=== PATIENT | female | born 1960 | race Caucasian/White ===

== ENCOUNTER 2020-02-16 14:34 | Emergency (ER) | payer BC, SELFPAY ==
[2020-02-16 14:52] VITALS: BP 182/90; PULSE 81; RESP 14; TEMP 36.2; O2SAT 99
--- NOTE | 2020-02-16 14:58 | ED.UPPEXIN ---
HPI - Extremity Injury (Upper) General Chief Complaint: Extremity Injury, Upper Stated Complaint: Neck/Shoulder Pain Time Seen by Provider: 02/16/20 14:59 Source: patient Mode of arrival: ambulatory Limitations: no limitations History of Present Illness HPI narrative: Kortney Mitchell is a 59 yo female with a PMH of HTN, DM, that comes to express care after sleeping on arm/neck and has difficulty moving arm over neck. Only activity that could have stressed area was painting house week of Xmas. Pain rated 6/10, back of neck yoder. No N/V/D. Related Data Home Medications Medication Instructions Recorded Confirmed lancets 30 gauge #25 each 03/02/19 multivitamin 1 tablet PO DAILY 03/02/19 02/16/20 omega-3 fatty acids 1,000 mg 1,000 mg PO DAILY 03/02/19 02/16/20 capsule Allergies Allergy/AdvReac Type Severity Reaction Status Date / Time Sulfa (Sulfonamide AdvReac Hives Verified 02/16/20 14:59 Antibiotics) Review of Systems Review of Systems: Narrative: CONSTITUTIONAL: Denies fever, chills, sweats. EYES: Denies visual changes, redness, discharge. ENT: Denies rhinorrhea, congestion, sore throat, otalgia. CARDIOVASCULAR: Denies chest pain, palpitations, edema. RESPIRATORY: Denies dyspnea, wheezing, cough GASTROINTESTINAL: Denies abdominal pain, nausea, vomiting, diarrhea. GENITOURINARY: Denies dysuria, hematuria, abnormal discharge SKIN: Denies rash or itching. NEUROLOGIC: Denies numbness, or focal weakness. PSYCHIATRIC: Denies anxiety or depression. Right neck and shoulder pain, difficulty holding right arm up on own unable to raise beyond 90 degrees PMFSH Past Medical History Medical History Hyperlipidemia due to type 2 diabetes mellitus Type 2 diabetes mellitus with other circulatory complications Surgical History Surgical History H/O spinal fusion History of hemorrhoidectomy Family History Family History Other Diabetes mellitus Hypertension Social History Social History Social History: Pt states she quot about 15 yrs ago Smoking packs per day: 1 Smoking cigarettes per day: 20.0 Years smoked: 10 Smoking pack-years: 10.00 Smoking status: Former smoker Alcohol intake: current Substance use: never 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 There is no relevant family history pertinent to the presenting complaint. Blood pressure is usually normally better controlled is on blood pressure medication Exam Narrative: Exam Narrative: GENERAL: This is a well-nourished, well-developed patient, in mild distress. HEAD: normocephalic, atraumatic. EYES: Sclera clear/white. Vision is grossly intact. EARS: External ears normal, auditory . Hearing grossly intact. NOSE: External nose normal without nasal discharge, nares without redness, no rhinorrhea. THROAT: Mucous membranes moist, NECK: Neck supple, tender with palpation CARDIOVASCULAR: Regular rate and rhythm without murmurs, gallops, or rubs. RESPIRATORY: Clear to auscultation. Breath sounds equal bilaterally. No wheezes, rales, or rhonchi. GASTROINTESTINAL: Abdomen soft, non-tender, SKIN: warm, intact with no suspicious lesions or rash, good texture and turgor. NEURO: awake, alert, and oriented to person, place and time. There were no obvious focal neurologic abnormalities. Steady gait EXTREMITIES: Normal range of motion on the left; on right unable to raise arm above 90 degrees elbow strength both pushing and pulling is 5 out of 5 BACK: Nontender without deformity Course Cour
[2020-02-16] MEDS: KETOROLAC (*BKC) 60 MG/2 ML VIAL IM (15:04)
== END 2020-02-16 15:24 | disposition home or self-care (01) ==
PROVIDERS: Emergency Provider Nurse Practitioner
DX: M54.2 Cervicalgia (principal); Z87.891 Personal history of nicotine dependence; E78.5 Hyperlipidemia, unspecified; E11.59 Type 2 diabetes mellitus with other circulatory complications; I10 Essential (primary) hypertension
CPT/HCPCS: 96372; 99213; G0463; J1885

== ENCOUNTER 2020-09-26 00:35 | Day surgery (SDC) | payer BC, SELFPAY ==
[2020-09-13 15:11] VITALS: BMI 31.1
[2020-09-26 07:50] VITALS: BP 135/66; PULSE 83; RESP 16; TEMP 36.1; O2SAT 97; BMI 31.6
[2020-09-26] MEDS: LACTATED RINGERS 1,000 ML 150 ML IV CONT (08:22)
--- NOTE | 2020-09-26 08:31 | WPDANESEPPF ---
Anes - Initial Pre Proc Eval Procedure: Operation Date: 09/26/20 09:45 Proposed Procedures p Screening Colonoscopy - Mike Valenzuela MD Date/Time: 09/26/20 08:31 Surgeon: Mike Valenzuela MD Pre Op Diagnosis: neoplasm screening Patient Data Age: 60 Gender: F Height: 1.57 m Weight: 78.4 kg Last Vital Signs Temp 36.1 C L 09/26/20 07:50 Pulse 83 09/26/20 07:50 Resp 16 09/26/20 07:50 BP 135/66 09/26/20 07:50 Pulse Ox 97 09/26/20 07:50 Allergies Allergy/AdvReac Type Severity Reaction Status Date / Time Sulfa (Sulfonamide AdvReac Hives Verified 09/26/20 08:26 Antibiotics) Home Medications Medication Instructions Recorded Confirmed Type lancets 30 gauge #25 each 03/02/19 09/26/20 History multivitamin 1 tablet PO DAILY 03/02/19 09/26/20 History omega-3 fatty acids 1,000 mg 1,000 mg PO DAILY 03/02/19 09/26/20 History capsule losartan 100 1 tablet PO DAILY #90 tablet 10/05/19 09/26/20 Rx mg-hydrochlorothiazide 12.5 mg tablet amitriptyline 25 mg tablet 25 mg PO DAILY tablet 02/21/20 09/26/20 History calcium carbonate-vitamin D3 600 1 cap PO DAILY 02/21/20 09/26/20 History mg calcium-200 unit capsule magnesium chloride 70 mg 70 mg PO DAILY 02/21/20 09/26/20 History (magnesium chloride) tablet,delayed release potassium gluconate 595 mg (99 mg) 595 mg PO DAILY 02/21/20 09/26/20 History tablet blood sugar diagnostic #300 ea 04/06/20 09/26/20 Rx metformin 500 mg tablet,extended See Rx Instructions .ROUTE 06/26/20 09/26/20 Rx release 24 hr .COMPLEX #180 tablet metoprolol succinate 100 mg See Rx Instructions .ROUTE 06/26/20 09/26/20 Rx tablet,extended release 24 hr .COMPLEX #90 tablet simvastatin 10 mg tablet 10 mg PO DAILY #90 tablet 09/11/20 09/26/20 Rx Patient hx anesthesia problems: none Family hx anesthesia problems: none PMFSH Past Medical History Medical History Hyperlipidemia due to type 2 diabetes mellitus Hypertension IBS (irritable bowel syndrome) Type 2 diabetes mellitus with other circulatory complications Surgical History Surgical History H/O spinal fusion History of hemorrhoidectomy Family History Family History Other Diabetes mellitus Hypertension Social History Social History Social History: Pt states she quot about 15 yrs ago Smoking packs per day: 1 Smoking cigarettes per day: 20.0 Years smoked: 10 Smoking pack-years: 10.00 Smoking status: Former smoker Tobacco type: cigarettes Alcohol intake: current Drinks per week: 1 Alcohol use details: occasionally Substance use: never Substance use type: does not use Living arrangements: alone 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 Gender identity (if verbalized by the patient): Female Spiritual care concerns: No Agree to blood products: Yes Anes - Eval Final PreProcedure Day of Procedure 09/26/20 08:31 Patient weight: obese Heart: regular rate and rhythm Lungs: clear to auscultation Airway: Mallampati scale class II Neurological: alert and oriented Last oral intake: >/= 8 hours ASA classification: III Emergent: no Anesthetic plan: proceed Anesthesia type and monitoring: general GIVS and standard monitoring Informed Consent: The patient's anesthetic plan and its attendant risks and benefits were discussed with the patient/family/POA. Questions were solicited and answers provided to the satisfaction of the patient/family/POA.
[2020-09-26 08:32] LABS: Glucose Point of Care 136 mg/dl (65-105)
--- NOTE | 2020-09-26 09:14 | PM.HPGS ---
History of Present Illness History of Present Illness Consent: Risks, benefits, and alternatives have been discussed and questions answered. Patient agrees to proceed with procedure. Chief complaint: neoplasm screening Narrative: Kortney Mitchell is a 60 year old female with last colonoscopy 10 years ago. Review of Systems Constitutional: Constitutional: Denies headache(s) and Denies weakness Eyes: Eyes: Denies blurry vision ENT: Reports Normal hearing present, Denies headache(s) and Denies neck pain Cardiovascular: Cardiovascular: Denies chest pain and Denies dyspnea Respiratory: Respiratory: Denies dyspnea Gastrointestinal: Gastrointestinal: Reports no additional gastrointestinal complaints Genitourinary: Genitourinary: Denies dysuria Musculoskeletal: Musculoskeletal: Denies neck pain Integumentary/Breasts: Skin/Breast: Denies dry skin Neurologic: Reports Normal hearing present, Denies headache(s) and Denies weakness Psychiatric: Psychiatric: Denies anxiety Endocrine: Endocrine: Denies change in body appearance Hematologic/Lymphatic: Hematologic/Lymphatic: Denies easy bleeding Allergic/Immunologic: Allergic/Immunologic: Denies urticaria PMFSH Past Medical History Medical History (Updated 09/26/20 @ 09:14 by Mike Valenzuela MD) Colon cancer screening Hyperlipidemia due to type 2 diabetes mellitus Hypertension IBS (irritable bowel syndrome) Type 2 diabetes mellitus with other circulatory complications Surgical History Surgical History H/O spinal fusion History of hemorrhoidectomy Family History Family History Other Diabetes mellitus Hypertension Social History Social History Social History: Pt states she quot about 15 yrs ago Smoking packs per day: 1 Smoking cigarettes per day: 20.0 Years smoked: 10 Smoking pack-years: 10.00 Smoking status: Former smoker Tobacco type: cigarettes Alcohol intake: current Drinks per week: 1 Alcohol use details: occasionally Substance use: never Substance use type: does not use Living arrangements: alone 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 Gender identity (if verbalized by the patient): Female Spiritual care concerns: No Agree to blood products: Yes Meds Home Medications and Allergies Home Medications Medication Instructions Recorded Confirmed Type lancets 30 gauge #25 each 03/02/19 09/26/20 History multivitamin 1 tablet PO DAILY 03/02/19 09/26/20 History omega-3 fatty acids 1,000 mg 1,000 mg PO DAILY 03/02/19 09/26/20 History capsule losartan 100 1 tablet PO DAILY #90 tablet 10/05/19 09/26/20 Rx mg-hydrochlorothiazide 12.5 mg tablet amitriptyline 25 mg tablet 25 mg PO DAILY tablet 02/21/20 09/26/20 History calcium carbonate-vitamin D3 600 1 cap PO DAILY 02/21/20 09/26/20 History mg calcium-200 unit capsule magnesium chloride 70 mg 70 mg PO DAILY 02/21/20 09/26/20 History (magnesium chloride) tablet,delayed release potassium gluconate 595 mg (99 mg) 595 mg PO DAILY 02/21/20 09/26/20 History tablet blood sugar diagnostic #300 ea 04/06/20 09/26/20 Rx metformin 500 mg tablet,extended See Rx Instructions .ROUTE 06/26/20 09/26/20 Rx release 24 hr .COMPLEX #180 tablet metoprolol succinate 100 mg See Rx Instructions .ROUTE 06/26/20 09/26/20 Rx tablet,extended release 24 hr .COMPLEX #90 tablet simvastatin 10 mg tablet 10 mg PO DAILY #90 tablet 09/11/20 09/26/20 Rx Allergies Allergy/AdvReac Type Severity Reaction Status Date / Time Sulfa (Sulfonamide AdvReac Hives Verified 09/26/20 08:26 Antibiotics) Vital Signs Vital Signs - 24 hr 09/26/20 07:50 Temperature 96.9 F L Pulse Rate 83 Respiratory Rate 16 Blood Pressure 135/66 Pulse Oximetry 97 Exam Const: Gener
[2020-09-26 09:37] VITALS: BP 144/76; PULSE 73; RESP 23; O2SAT 98
[2020-09-26 09:47] VITALS: BP 156/87; PULSE 67; RESP 18; O2SAT 98
[2020-09-26 09:57] VITALS: BP 166/76; PULSE 65; RESP 21; O2SAT 100
== END 2020-09-26 10:15 | disposition home or self-care (01) ==
PROVIDERS: PCP Family Medicine; Visit Provider Internal Medicine Gastroenterology
PROC: 0DJD8ZZ Inspection of Lower Intestinal Tract, Via Natural or Artificial Opening Endoscopic (ICD-10-PCS; CPT 45378; principal; 2020-09-26 09:45)
DX: Z12.11 Encounter for screening for malignant neoplasm of colon (principal); D12.2 Benign neoplasm of ascending colon; K57.30 Diverticulosis of large intestine without perforation or abscess without bleeding; K64.8 Other hemorrhoids; I10 Essential (primary) hypertension; K58.9 Irritable bowel syndrome, unspecified; E11.59 Type 2 diabetes mellitus with other circulatory complications; Z79.84 Long term (current) use of oral hypoglycemic drugs; E78.5 Hyperlipidemia, unspecified; Z87.891 Personal history of nicotine dependence; E66.9 Obesity, unspecified; Z68.31 Body mass index [BMI] 31.0-31.9, adult
CPT/HCPCS: 45385; 82948; 88305; J2704; J7120

== ENCOUNTER → 2021-02-22 08:39 | Outpatient (CLI) | payer BC, SELFPAY ==
--- NOTE | ~2021-02-22 | US_ITS ---
EXAMINATION: US right upper quadrant DATE: 02/22/2021 09:04 INDICATION: Abnormal levels of other serum enzymes. TECHNIQUE: Multiple grayscale and Doppler ultrasound images of the abdomen were obtained. COMPARISON: None FINDINGS: The visualized portions of the head, body, and tail of the pancreas are normal. There is di ffuse hepatic steatosis with focal sparing in the gallbladder fossa. There is a 1.3 cm hypoechoic mas s in left hepatic lobe. No liver surface nodularity. There is normal flow in main portal vein. The ga llbladder is normal in size. No gallstones or gallbladder wall thickening. There is no sonographic Mu rphy sign. The common duct is normal and measures 3 mm. IMPRESSION: 1. 1.3 cm mass in left hepatic lobe, which may be benign or malignant. Abdomen MRI without and with c ontrast is recommended. Reviewed, dictated and finalized at location A. PAPER CONSULTANT IMPRESSION: 1. 1.3 cm mass in left hepatic lobe, which may be benign or malignant. Abdomen MRI without and with contrast is recommended.
== END ==
PROVIDERS: PCP Nurse Practitioner; Visit Provider Nurse Practitioner
DX: R74.8 Abnormal levels of other serum enzymes (principal); R16.0 Hepatomegaly, not elsewhere classified
CPT/HCPCS: 76705

== ENCOUNTER → 2021-03-08 10:00 | Outpatient (CLI) | payer BC, SELFPAY ==
--- NOTE | ~2021-03-08 | MR_ITS ---
EXAMINATION: MR abdomen wo/w con DATE: 03/08/2021 11:11 INDICATION: Hepatomegaly TECHNIQUE: Magnetic resonance imaging (MRI) of the abdomen was performed without and with 15 mL Multi cornelio intravenous contrast. Sequences included coronal T2-weighted SS-FSE, coronal and axial FS 2D-F IESTA, axial STIR FSE, axial T2-weighted SS-FSE, axial T2-weighted FS SS-FSE, axial diffusion-weighte d SE, axial dual-echo T1-weighted FSPGR, and axial and coronal T1-weighted LAVA. Postcontrast axial T 1-weighted LAVA images were obtained in a time course. Postcontrast coronal T1-weighted LAVA images w ere obtained. COMPARISON: Ultrasound dated 02/22/2021 FINDINGS: Heart size is normal. No pericardial or pleural effusion. Diffuse hepatic steatosis. There are 8 subt le hepatic nodules scattered throughout the right hepatic lobe the largest measuring approximately 1. 9 cm in segment IVb of the liver which appears to correspond to the hypoechoic nodule on prior ultras ound. The nodules are mildly T2 hyperintense and T1 hypointense to the surrounding liver with subtle peripheral rim of enhancement on the portal venous phase of contrast. The next 2 largest nodules marybeth ure 1.9 cm and 1.2 cm in segment 5 of the liver. The remaining subcentimeter nodules are in segment 5 and 6. Gallbladder, pancreas, spleen, bilateral adrenal glands and kidneys are normal. The visualize d bowels are unremarkable with no obstruction. No pathologically enlarged abdominal lymphadenopathy. Prominent metallic magnetic field artifact associated with vertical mckinley and pedicle screw fixation fo r L3-L5 posterior spinal fusion. There are no obscured bone marrow signal is normal throughout. IMPRESSION: 1. Diffuse hepatic steatosis with multiple indeterminate small peripherally enhancing hepatic nodules . Differential includes focal hepatic steatosis, focal nodular hyperplasia or metastatic disease. Con boiler reliner ultrasound-guided biopsy of the nodule identified on prior ultrasound. Reviewed, dictated and finalized at location A. KEN TENDER IMPRESSION: 1. Diffuse hepatic steatosis with multiple indeterminate small peripherally enh ancing hepatic nodules. Differential includes focal hepatic steatosis, focal no dular hyperplasia or metastatic disease. Consider ultrasound-guided biopsy of t he nodule identified on prior ultrasound.
== END ==
PROVIDERS: PCP Family Medicine; Visit Provider Family Medicine
DX: R16.0 Hepatomegaly, not elsewhere classified (principal); K76.0 Fatty (change of) liver, not elsewhere classified
CPT/HCPCS: 74183; A9577

== ENCOUNTER 2021-03-20 02:53 | Outpatient (CLI) | payer BC, SELFPAY ==
[2021-03-15 09:48] VITALS: BMI 32.4
--- NOTE | 2021-03-15 10:01 | PC.NURSE ---
Report to the Outpatient Waiting Room, entrance under the green pavilion located off [facility], at time _0730_ on date _[id number]_. OR Time: ___. - You and your visitor will be asked a series of questions to screen for COVID 19 for your protection. - A mask is required within the hospital. - Only one visitor is allowed at this time. Patient visitors will be guided where to wait when not with patient. Preoperative COVID Testing Requirements: No COVID Test needed if: (proof is required; if not received patient will have Rapid Test prior to entry) - Patient has received COVID Vaccine at least 14 days prior to procedure date or - Patient has positive COVID test result within last 90 days of surgery date. COVID Test needed if above criteria is not met If not COVID vaccinated a COVID test must be conducted within 72 hours of surgery and patient is asked to isolate self from time of testing until procedure. You will go to the [facility] Testing Site for your COVID testing. The [facility] Testing site is located at the corner of [address] from [facility]. You will only be called if COVID results are positive and your surgeon may reschedule your elective surgery date. NPO 6 hours prior to procedure Take the following medications with a SIP of water the morning of surgery: Medications to discontinue per physician Date to take last dose Please no make-up, nail khmer, hairspray, perfume, deodorant, or body powder the day of surgery. No jewelry (including any body piercings) or valuables the day of surgery, leave them at home. Please take a shower or bath the night before, or the morning of, surgery with an antibacterial soap. Wear comfortable, loose fitting clothing. Children are encouraged to wear pajamas. - Jewelry must be removed prior to entering the operating room. Rings and piercings that are not removed may be cut off. - The hospital will not accept responsibility for valuables. - Please leave all valuables, including medications, at home the day of surgery. If you are going home after surgery, a licensed charter coach driver must drive you home. - NO public transportation without another adult. - We recommend that an adult stay with you for 24 hours following discharge. - We also recommend that you do not drive, make important decision, drink alcoholic beverages, or take any drugs that were not prescribed by your health care provider for at least 24 hours after your discharge time. For Pediatric surgeries, we recommend two adults accompany the child home (only one inside the building at this time). Follow any additional instructions given to you from your surgeon. Telephone instructions given to Patient____and asked if any additional questions and then verbalized understanding. Patient advised to call surgeon office or pre surgery nurse liaison [phone] if any additional questions.
[2021-03-20] VITALS (10 sets, daily range): BP systolic 138–171; BP diastolic 47–79; PULSE 51–60; RESP 16; TEMP 36.3; O2SAT 96–98
--- NOTE | ~2021-03-20 | US_ITS ---
EXAMINATION: US biopsy liver DATE: 03/20/2021 10:03 INDICATION: Liver mass. TECHNIQUE: The procedure including the risks, benefits, and alternatives was discussed with the patie nt. Risks discussed included bleeding and infection. The patient understood the risks and agreed to p roceed. The skin overlying the left hepatic lobe was prepped and draped in usual sterile fashion. An esthetic was administered with 1% lidocaine subcutaneously. An 18 gauge core biopsy needle was then used to obtain 3 core biopsy specimens under continuous sonographic guidance. The entry site was raoul librado and dressed. There were no immediate complications. FINDINGS: Ultrasound images demonstrate the needle in a 1.3 cm mass in left hepatic lobe.. IMPRESSION: 1. Ultrasound-guided core needle biopsy of a 1.3 cm mass in left hepatic lobe. Reviewed, dictated and finalized at location A. INE I ENGRAVER
[2021-03-20 08:16] LABS: Glucose Point of Care 149 mg/dl (65-105)
[2021-03-20 08:46] LABS: INR 0.9; Prothrombin Time 12.4 Seconds (11.1-14.7)
[2021-03-20 08:50] LABS: Mean Platelet Volume 11.7 fl (7.4-10.4); Platelet Count Result 219 k/mm3 (150-375)
[2021-03-20 10:31] LABS: Glucose Point of Care 123 mg/dl (65-105)
--- NOTE | 2021-03-20 15:24 | SUR.PHASEII ---
PT DC HOME WITH BOYFRIEND.
== END 2021-03-20 14:00 | disposition home or self-care (01) ==
PROVIDERS: PCP Family Medicine; Referring Provider Surgery; Visit Provider Radiology Diagnostic Radiology
PROC: BF45ZZZ Ultrasonography of Liver (ICD-10-PCS; CPT 47000; principal; 2021-03-20 09:30)
DX: C7A.8 Other malignant neuroendocrine tumors (principal); R16.0 Hepatomegaly, not elsewhere classified
CPT/HCPCS: 36415; 47000; 76942; 82948; 85049; 85610; 88307; 88342

== ENCOUNTER → 2021-05-05 08:42 | Outpatient (CLI) | payer BC, SELFPAY ==
--- NOTE | ~2021-05-05 | MM_ITS ---
EXAMINATION: MM screening matias BI w la nena HISTORY: Screening mammogram TECHNIQUE: Craniocaudal and mediolateral oblique 3-D tomosynthesis images were obtained and synthetic 2-D images were generated. CAD analysis was submitted and interpreted. COMPARISON: No prior mammogram is available for comparison at this institution. BREAST PARENCHYMAL COMPOSITION: There are scattered areas of fibroglandular density. FINDINGS: There is no evidence of suspicious mass, calcification, or architectural distortion to sugg est malignancy in either breast. There has been no suspicious interval change. IMPRESSION: 1. No mammographic evidence of malignancy. 2. Recommend routine screening mammography in one year. BI-RADS Category 1: Negative Reviewed, dictated and finalized at location A.
--- NOTE | ~2021-05-05 | DEXA_ITS ---
Bone Density Report Name: FENG CARIAS Age: 61 Sex: Female Ethnicity: White Date of : 1960 Indication: postmenopausal; screening for osteoporosis; cancer; asthma or emphysema; Referring Provider: Karine Grewal Study: Bone densitometry was performed. Exam Date: May 05, 2021 Accession number: [id number] Bone Density: Region BMD T-score Z-score Classification AP Spine (L1, L2) 1.246 2.4 3.8 Normal Femoral Neck (Left) 0.914 0.6 1.9 Normal Total Hip (Left) 1.065 1.0 2.0 Normal Femoral Neck (Right) 0.898 0.4 1.8 Normal Total Hip (Right) 1.022 0.7 1.7 Normal Total Hip Mean 1.044 0.9 1.9 Normal World Health Organization criteria for BMD impression classify patients as: Normal (T-score at or above -1.0), Osteopenia (T-score between -1.0 and -2.5), or Osteoporosis (T-score at or below -2.5). 10-year Fracture Risk: FRAX not reported because: All T-scores for Spine Total, Hip Total, Femoral Neck at or above -1.0 Clinical Information Provided by Patient: Has used the following medications: Vitamin D, Calcium Has the following medical conditions: Asthma or Emphysema, Cancer Patient maximum height was 62 Menopause Age: 53 No regular weight bearing exercise Does not regularly consume dairy products Drinks caffeinated beverages Onset of menses at age 13 Number of children 3 Impression: The patient has normal bone mass. Discussion: BONE DENSITY IS ABOVE THE MINIMUM DESIRABLE LEVEL AT ALL SKELETAL SITES TESTED. This patient?s bone mineral density is above the minimum desirable level (T-score -1.0 or better) at all sites measured. The patient should follow a healthful lifestyle (good nutrition with adequate calcium and vitamin D, and appropriate weight-bearing exercise). Follow-Up: Consider repeating this study in 5 years or sooner if there is some new clinical indication. Reported by: BAILEE on 05/05/2021 8:57:00 AM. Reviewed, dictated and finalized at location ADominique PACHECO
== END ==
PROVIDERS: PCP Nurse Practitioner; Visit Provider Nurse Practitioner
DX: Z12.31 Encounter for screening mammogram for malignant neoplasm of breast (principal); Z78.0 Asymptomatic menopausal state
CPT/HCPCS: 77063; 77067; 77080

== ENCOUNTER 2021-08-08 08:27 | Outpatient (CLI) | payer BC, SELFPAY ==
[2021-08-08 10:09] LABS: Hemoglobin A1C 6.4 % (<5.7)
== END 2021-08-08 08:28 | disposition home or self-care (01) ==
PROVIDERS: Nurse Practitioner; PCP Family Medicine; Visit Provider Family Medicine
DX: E11.9 Type 2 diabetes mellitus without complications (principal)
CPT/HCPCS: 36415; 83036

== ENCOUNTER 2021-08-30 08:39 | Outpatient (CLI) | payer BC, SELFPAY ==
--- NOTE | ~2021-08-30 | CT_ITS ---
EXAMINATION: CT abdomen pelvis w con DATE: 08/30/2021 09:08 INDICATION: Neuroendocrine tumor of the liver TECHNIQUE: Computed tomography (CT) of the abdomen and pelvis was performed with 100 CC Omnipaque 300 intravenous contrast. Automated exposure control and iterative reconstruction technique were employe d. Exam dose: 565.59 mGy-cm total exam DLP. COMPARISON: 03/08/2021 MR abdomen 02/22/2021 right upper quadrant abdominal ultrasound examination FINDINGS: The lung size. No pericardial. There is diffuse hepatic steatosis with minimal pericholecystic sparing. No hepatic space-occupying m ass lesion. Normal splenic size. No pancreatic mass lesion or calcification or ductal dilatation. The gallbladder is present. No gallbladder wall thickening or pericholecystic fluid or fat stranding. No bile duct dilatation. Normal morphology of the adrenal glands mild hypertrophy on the left. No renal mass lesion or urinary tract calculus or hydroureteronephrosis. The urinary bladder, uterus and adnexa are unremarkable. Mild atherosclerotic calcification of the abdominal aorta. No abdominal aortic aneurysm. No intraperi toneal or retroperitoneal or pelvic mass lesion or adenopathy or ascites. Mild colonic diverticulosis is no evidence of diverticulitis. No bowel obstruction, bowel wall thicke edson, pneumatosis or intraperitoneal free air. Status post posterior and interbody spinal fusion at L3-L5. No suspicious osteolytic or osteosclerotic lesions are noted. IMPRESSION: Hepatic steatosis Mild colonic diverticulosis Status post posterior and interbody spinal fusion at L3-L5 Reviewed, dictated and finalized at Location A. Reviewed, dictated and finalized at location A.
[2021-08-30 09:03] LABS: Estimated Glomerular Filt Rate > 60
== END 2021-08-30 08:40 | disposition home or self-care (01) ==
LOC: ANHIMG 08:40
PROVIDERS: PCP Family Medicine; Visit Provider Internal Medicine Hematology & Oncology
DX: D3A.8 Other benign neuroendocrine tumors (principal); K76.0 Fatty (change of) liver, not elsewhere classified; Z98.1 Arthrodesis status; K57.30 Diverticulosis of large intestine without perforation or abscess without bleeding
CPT/HCPCS: 74177; Q9967

== ENCOUNTER 2021-09-11 08:04 | Emergency (ER) | payer BC, SELFPAY ==
--- NOTE | 2021-09-11 08:12 | ED.EAR ---
HPI - Ear Problem General Chief complaint: Dental/Oral Stated complaint: Ear Pain Time Seen by Provider: 09/11/21 08:25 Source: patient and RN notes reviewed Mode of arrival: ambulatory Limitations: no limitations History of Present Illness HPI Narrative: 61-year-old female presents to concern for right ear pain and lower jaw pain. She reports she has had this pain for approximately 2 months. Reports she has been on several rounds of antibiotics for potential ear, sinus, dental infection. Reports antibiotics have decreased the pain but did not relieve the pain. She reports she has been seen by her cancer doctor, who prescribed her medicine for sinus infection, and she has an appointment with ENT soon. She is undergoing hormone therapy for Neuroendocrine carcinoma. She reports the pain is the worst at her left jaw, and has become swollen and tender. Reports pain with chewing. She denies sinus congestion, rhinorrhea, drianage from the ear. MD Complaint: ear pain (And jaw pain) Related Data Home Medications Medication Instructions Recorded Confirmed lancets 30 gauge (Videolla #25 ea 03/02/19 09/05/21 Lancets) multivitamin 1 tablet PO DAILY 03/02/19 09/05/21 calcium carbonate 600 mg-vitamin 1 cap PO DAILY 02/21/20 09/05/21 D3 5 mcg (200 unit) capsule (Calcium 600 + D(3)) potassium gluconate 595 mg (99 mg) 595 mg PO DAILY 02/21/20 09/05/21 tablet fexofenadine 180 mg tablet 180 mg PO DAILY 02/14/21 09/05/21 (Karol Allergy) magnesium chloride 70 mg 70 mg PO BID 02/14/21 09/05/21 (magnesium chloride) tablet,delayed release carvedilol 25 mg tablet 25 mg PO Q12H 03/12/21 09/05/21 diltiazem HCl 180 mg capsule,24 300 mg PO DAILY 03/12/21 09/05/21 hr,extended release melatonin 10 mg capsule 10 mg PO QHS 03/12/21 09/05/21 omega 9-ryh-uvf-fish oil 1,200 mg 1 cap PO BID 03/12/21 09/05/21 (144 mg-216 mg) capsule (Fish Oil) valsartan 320 mg tablet 320 mg PO DAILY 03/12/21 09/05/21 ondansetron 8 mg oral soluble film 8 mg PO Q8H PRN Nausea 06/13/21 09/05/21 Allergies Allergy/AdvReac Type Severity Reaction Status Date / Time Sulfa (Sulfonamide AdvReac Mild Hives Verified 09/11/21 08:31 Antibiotics) Review of Systems Review of Systems: CONSTITUTIONAL: Denies malaise, chills, sweats, or fever. EYES: Denies visual changes, redness, or discharge. ENT: Denies rhinorrhea, congestion, sinus pain, and sore throat. Reports right ear pain, right jaw pain, right dental pain. CARDIOVASCULAR: Denies chest pain, palpitations, or edema. RESPIRATORY: Denies cough. Denies dyspnea. GASTROINTESTINAL: Denies abdominal pain, nausea, vomiting, diarrhea SKIN: Denies rash or itching. MUSCULOSKELETAL: Denies myalgia. NEUROLOGIC: Denies headache. 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
[2021-09-11 08:15] VITALS: BP 147/62; PULSE 59; RESP 20; TEMP 36.5; O2SAT 99
== END 2021-09-11 08:56 | disposition home or self-care (01) ==
PROVIDERS: Emergency Provider Nurse Practitioner; PCP Nurse Practitioner
DX: K05.219 Aggressive periodontitis, localized, unspecified severity (principal); E78.5 Hyperlipidemia, unspecified; E11.9 Type 2 diabetes mellitus without complications; I10 Essential (primary) hypertension; Z85.89 Personal history of malignant neoplasm of other organs and systems; Z85.05 Personal history of malignant neoplasm of liver; Z87.891 Personal history of nicotine dependence
CPT/HCPCS: 41800; 99213; G0463

== ENCOUNTER 2022-01-23 08:31 | Outpatient (CLI) | payer BC, SELFPAY ==
[2022-01-23 11:56] LABS: MALB Creatinine Ratio 650.7 mg/g (0-30); Microalbumin Urine Random 91.1 mg/L (0-16.7)
[2022-01-23 12:37] LABS: Cholesterol 231 mg/dL (0-200); HDL Direct 85 mg/dL; Triglycerides 113 mg/dL (<150)
[2022-01-23 12:48] LABS: LDL Cholesterol Direct 102 mg/dL
== END 2022-01-23 08:32 | disposition home or self-care (01) ==
LOC: ANHLAB 08:32
PROVIDERS: PCP Nurse Practitioner; Visit Provider Nurse Practitioner
DX: E11.9 Type 2 diabetes mellitus without complications (principal); E78.5 Hyperlipidemia, unspecified
CPT/HCPCS: 36415; 80061; 82043

== ENCOUNTER 2022-08-27 13:20 | Outpatient (CLI) | payer BC, SELFPAY ==
--- NOTE | ~2022-08-27 | CT_ITS ---
EXAMINATION: CT abdomen pelvis w con DATE: 08/27/2022 13:54 INDICATION: Neuroendocrine tumor of liver. TECHNIQUE: Computed tomography (CT) of the abdomen and pelvis was performed with 100 mL Omnipaque 350 intravenous contrast. Automated exposure control and iterative reconstruction technique were employe d. The dose-length product was 507.71 mGy-cm. COMPARISON: CT abdomen and pelvis 08/30/2021, abdomen MRI 03/08/21 FINDINGS: The visualized portions of the lung bases demonstrate mild atelectasis. No pleural effusion . The heart size is normal. No pericardial effusion. There is diffuse hepatic steatosis. There are 3 hypodense masses in the liver measuring up to 18 mm. The gallbladder is normal. The spleen, pancreas, and adrenal glands are normal. There are embolization coils in the area of gastroduodenal artery. Th e kidneys are normal. There is diverticulosis of the colon without evidence of diverticulitis. There are no dilated loops of bowel. The appendix is normal. There is a 1.8 x 1.1 cm calcified mesenteric m ass in the right lower quadrant. There are subcutaneous masses in the buttocks, likely fat necrosis. There is focal soft tissue gas in the subcutaneous right buttocks, which may be an injection site. Th ere are no pathologically enlarged lymph nodes. There is no free intraperitoneal fluid. There are chang nges of anterior and posterior fusion procedures from L3 to L5. IMPRESSION: 1. Stable calcified mass mesenteric mass in the right lower quadrant, most likely carcinoid. 2. Liver masses that were not seen on 08/30/21, consistent with metastatic disease. Note that liver ma sses were better seen on the MRI from 03/08/2021. Given the decreased sensitivity of CT compared to MR I, it is not clear if the findings have improved or worsened from prior imaging. Reviewed, dictated and finalized at location E. IMPRESSION: 1. Stable calcified mass mesenteric mass in the right lower quadrant, most like ly carcinoid. 2. Liver masses that were not seen on 08/30/21, consistent with metastatic disea se. Note that liver masses were better seen on the MRI from 03/08/2021. Given th e decreased sensitivity of CT compared to MRI, it is not clear if the findings have improved or worsened from prior imaging.
[2022-08-27 13:49] LABS: Estimated Glomerular Filt Rate > 60
== END 2022-08-27 13:21 | disposition home or self-care (01) ==
PROVIDERS: PCP Nurse Practitioner Adult Health; Visit Provider Internal Medicine Hematology & Oncology
DX: D3A.8 Other benign neuroendocrine tumors (principal); R16.0 Hepatomegaly, not elsewhere classified
CPT/HCPCS: 74177; Q9967

== ENCOUNTER 2023-02-13 08:12 | Outpatient (CLI) | payer BC, SELFPAY ==
--- NOTE | ~2023-02-13 | CT_ITS ---
EXAMINATION: CT abdomen pelvis w con DATE: 02/13/2023 08:42 INDICATION: Neuroendocrine tumor of liver. TECHNIQUE: Computed tomography (CT) of the abdomen and pelvis was performed with 100 mL Omnipaque 350 intravenous contrast. Automated exposure control and iterative reconstruction technique were employe d. The dose-length product was 612.93 mGy-cm. COMPARISON: CT abdomen and pelvis 08/27/2022 08/30/2021, abdomen MRI 03/08/21 FINDINGS: The visualized portions of the lung bases demonstrate mild atelectasis. No pleural effusion . The heart size is normal. No pericardial effusion. There is heterogeneous attenuation and mild volu me loss of right hepatic lobe. There is surface nodularity of right hepatic lobe. There is a 19 mm hy podense mass in right hepatic lobe, stable from 08/27/2022. There is a 9 mm hypodense mass in right he patic lobe, stable from 08/27/2022. The gallbladder is normal in size. The spleen, pancreas, and right adrenal gland are normal. There is chronic thickening of left adrenal gland, likely benign. There ar e embolization coils in gastroduodenal artery. The kidneys are normal. There are no dilated loops of bowel. The appendix is normal. In the right lower quadrant, there is a 20 x 13 mm calcified mesenteri c mass. There are no pathologically enlarged lymph nodes. There is no free intraperitoneal fluid. The re are changes of anterior and posterior fusion procedures from L3 to L5. IMPRESSION: 1. Stable masses in right hepatic lobe, consistent with metastatic neuroendocrine tumor. 2. Diffuse heterogeneity and volume loss of right hepatic lobe, new from 08/27/22. These findings may be treatment change if there is a history of chemoembolization. 3. Calcified mass in the mesentery, stable from 08/27/2022, consistent with neuroendocrine tumor. Reviewed, dictated and finalized at location A. [employer] IMPRESSION: 1. Stable masses in right hepatic lobe, consistent with metastatic neuroendocri ne tumor. 2. Diffuse heterogeneity and volume loss of right hepatic lobe, new from 3. These findings may be treatment change if there is a history of chemoemboliz ation. 3. Calcified mass in the mesentery, stable from 08/27/2022, consistent with neur oendocrine tumor.
== END 2023-02-13 08:13 | disposition home or self-care (01) ==
LOC: ANHIMG 08:16
PROVIDERS: PCP Nurse Practitioner Adult Health; Visit Provider Internal Medicine Hematology & Oncology
DX: D3A.8 Other benign neuroendocrine tumors (principal)
CPT/HCPCS: 74177; Q9967

== ENCOUNTER 2023-02-25 08:32 | Outpatient (CLI) | payer BC, SELFPAY ==
[2023-02-25 18:53] LABS: Alanine Aminotransferase 63 U/L (6-35); Albumin Level 4.4 g/dL (3.5-5.1); Alkaline Phosphatase 125 U/L (38-126); Anion Gap 8 mmol/L (8-16); Aspartate Amino Transferase 82 U/L (14-36); Bilirubin,Total 0.7 mg/dL (0.2-1.3); Blood Urea Nitrogen 18 mg/dL (7-17); Calcium 9.3 mg/dL (8.4-10.2); Carbon Dioxide 30 mmol/L (22-30); Chloride 100 mmol/L (98-107); Cholesterol 209 mg/dL (0-200); Estimated Glomerular Filt Rate > 60; Glucose 134 mg/dL (65-110); HDL Direct 74 mg/dL; Potassium 4.5 mmol/L (3.4-5.0); Sodium 138 mmol/L (137-145); Triglycerides 136 mg/dL (<150)
[2023-02-25 19:04] LABS: LDL Cholesterol Direct 103 mg/dL
[2023-02-25 20:10] LABS: Basophils Percent Auto 0.8 % (0.2-1.2); Eosinophils Absolute Auto 0.1 K/mm3 (0-0.3); Eosinophils Percent Auto 3.6 % (0-4.4); Hematocrit 42.9 % (37.0-47.0); Hemoglobin 13.7 g/dL (12.0-15.0); Immature Granulocyte Absolute 0.01 K/mm3 (0.00-0.031); Immature Granulocyte Percent A 0.3 % (0-0.5); Lymphocytes Absolute Auto 0.57 K/mm3 (0.9-3.2); Lymphocytes Percent Auto 14.8 % (18.3-44.2); Mean Corpuscular HGB Conc 31.9 g/dl (32-36); Mean Corpuscular Hemoglobin 31.8 pg (26-34); Mean Corpuscular Volume 99.5 fl (80-100); Mean Platelet Volume 11.3 fl (7.4-10.4); Monocytes Absolute Auto 0.5 K/mm3 (0.1-0.6); Monocytes Percent Auto 12.5 % (2.6-8.5); Neutrophils Absolute Auto 2.6 K/mm3 (1.3-6.7); Platelet Count Result 250 k/mm3 (150-375); Red Blood Count 4.31 M/mm3 (4.2-5.4); Red Cell Distribution Width 13.3 % (11.5-14.5); White Blood Count 3.8 K/mm3 (4.5-10.0)
[2023-02-25 20:30] LABS: Hemoglobin A1C 7.3 % (<5.7)
[2023-02-25 20:38] LABS: Creatinine Urine 63.3 mg/dL
[2023-02-25 20:42] LABS: MALB Creatinine Ratio 21.8 mg/g (0-30); Microalbumin Urine Random 13.8 mg/L (0-16.7)
[2023-03-12 18:41] LABS: Serotonin 183 ng/mL (56-244)
== END 2023-02-25 08:33 | disposition home or self-care (01) ==
PROVIDERS: PCP Nurse Practitioner Adult Health; Visit Provider Internal Medicine Hematology & Oncology
DX: D3A.8 Other benign neuroendocrine tumors (principal); E11.9 Type 2 diabetes mellitus without complications
CPT/HCPCS: 36415; 80053; 80061; 82043; 83036; 84260; 85025; 86316

== ENCOUNTER 2023-07-03 08:00 | Outpatient (CLI) | payer BC, SELFPAY ==
[2023-07-03 19:03] LABS: Basophils Percent Auto 0.8 % (0.2-1.2); Eosinophils Absolute Auto 0.2 K/mm3 (0-0.3); Eosinophils Percent Auto 5.9 % (0-4.4); Hematocrit 45.5 % (37.0-47.0); Hemoglobin 14.2 g/dL (12.0-15.0); Immature Granulocyte Absolute 0.02 K/mm3 (0.00-0.031); Immature Granulocyte Percent A 0.6 % (0-0.5); Lymphocytes Absolute Auto 0.49 K/mm3 (0.9-3.2); Lymphocytes Percent Auto 13.8 % (18.3-44.2); Mean Corpuscular HGB Conc 31.2 g/dl (32-36); Mean Corpuscular Hemoglobin 31.9 pg (26-34); Mean Corpuscular Volume 102.2 fl (80-100); Mean Platelet Volume 12.3 fl (7.4-10.4); Monocytes Absolute Auto 0.4 K/mm3 (0.1-0.6); Monocytes Percent Auto 11.5 % (2.6-8.5); Neutrophils Absolute Auto 2.4 K/mm3 (1.3-6.7); Neutrophils Percent Auto 67.4 % (45.5-73.1); Platelet Count Result 175 k/mm3 (150-375); Red Blood Count 4.45 M/mm3 (4.2-5.4); Red Cell Distribution Width 13.8 % (11.5-14.5); White Blood Count 3.6 K/mm3 (4.5-10.0)
[2023-07-03 19:15] LABS: Alanine Aminotransferase 75 U/L (6-35); Alkaline Phosphatase 117 U/L (38-126); Anion Gap 10 mmol/L (4-12); Aspartate Amino Transferase 84 U/L (14-36); Bilirubin,Total 0.7 mg/dL (0.2-1.3); Blood Urea Nitrogen 28 mg/dL (7-17); Calcium 9.5 mg/dL (8.4-10.2); Carbon Dioxide 24 mmol/L (22-30); Chloride 102 mmol/L (98-107); Cholesterol 233 mg/dL (0-200); Estimated Glomerular Filt Rate > 60; Glucose 126 mg/dL (65-110); HDL Direct 97 mg/dL; Potassium 4.4 mmol/L (3.4-5.0); Sodium 136 mmol/L (137-145); Triglycerides 290 mg/dL (<150)
[2023-07-03 19:27] LABS: LDL Cholesterol Direct 100 mg/dL
[2023-07-03 21:03] LABS: Hemoglobin A1C 6.8 % (<5.7)
[2023-07-03 21:20] LABS: Creatinine Urine 7.5 mg/dL
[2023-07-03 21:26] LABS: MALB Creatinine Ratio 350.7 mg/g (0-30); Microalbumin Urine Random 26.3 mg/L (0-16.7)
[2023-07-11 18:14] LABS: Serotonin 225 ng/mL (56-244)
== END 2023-07-03 08:01 | disposition home or self-care (01) ==
PROVIDERS: PCP Nurse Practitioner Adult Health; Visit Provider Internal Medicine Hematology & Oncology
DX: D3A.8 Other benign neuroendocrine tumors (principal); E11.9 Type 2 diabetes mellitus without complications; R74.8 Abnormal levels of other serum enzymes
CPT/HCPCS: 36415; 80048; 80061; 80076; 82043; 83036; 84260; 85025; 86316

== ENCOUNTER 2023-07-16 08:03 | Outpatient (CLI) | payer BC, SELFPAY ==
--- NOTE | ~2023-07-16 | CT_ITS ---
CT of the Abdomen and Pelvis: Indication: Neuroendocrine tumor of liver Technique: 2.5 mm axial scans were obtained through the abdomen and pelvis following intravenous adm inistration of 100 cc of Omnipaque 350. Dose reduction technique was used on this scan by utilizing a utomated exposure control and iterative reconstruction technique. The dose-length product (DLP) was 6 65.16 mGy-cm. COMPARISON: 02/13/2023 Findings: Scans through the lung bases are unremarkable. There is diffuse hepatic steatosis with a heterogeneous and nodular appearance of the inferior right hepatic lobe. Findings are essentially stable from prior exam. The spleen, pancreas, gallbladder, adr enals and kidneys are within normal limits. There are atherosclerotic calcifications of the aorta. N o lymphadenopathy. No bowel obstruction or bowel wall thickening. There is no evidence to suggest acute appendicitis. St able small irregular calcified mass in the mesentery just anterior to the right kidney, measuring 1.7 cm in diameter (axial image 82 for example). Images through the pelvis were performed. Urinary bladder unremarkable. No pelvic mass seen. No ascit es. Impression: Stable 1.7 cm area calcified mass in the mesentery in the right mid abdomen, as detailed above. This could reflect carcinoid tumor. Stable diffuse metastatic steatosis with mild heterogeneity and nodularity of the inferior right hepa tic lobe. Findings could reflect metastatic disease. Reviewed, dictated and finalized at location . Impression: Stable 1.7 cm area calcified mass in the mesentery in the right mid abdomen, as detailed above. This could reflect carcinoid tumor. Stable diffuse metastatic steatosis with mild heterogeneity and nodularity of t he inferior right hepatic lobe. Findings could reflect metastatic disease.
== END 2023-07-16 08:04 | disposition home or self-care (01) ==
LOC: ANHIMG 08:05
PROVIDERS: PCP Nurse Practitioner Adult Health; Visit Provider Internal Medicine Hematology & Oncology
DX: D3A.8 Other benign neuroendocrine tumors (principal)
CPT/HCPCS: 74177; Q9967

== ENCOUNTER 2023-10-06 07:21 | Outpatient (CLI) | payer BC, SELFPAY ==
[2023-10-06 18:25] LABS: Basophils Percent Auto 0.6 % (0.2-1.2); Eosinophils Absolute Auto 0.2 K/mm3 (0-0.3); Eosinophils Percent Auto 6.1 % (0-4.4); Hematocrit 45.5 % (37.0-47.0); Immature Granulocyte Absolute 0.01 K/mm3 (0.00-0.031); Immature Granulocyte Percent A 0.3 % (0-0.5); Immature Platelet Fraction Pct 7.6 % (0.9-11.2); Lymphocytes Absolute Auto 0.54 K/mm3 (0.9-3.2); Mean Corpuscular HGB Conc 30.8 g/dl (32-36); Mean Corpuscular Hemoglobin 31.8 pg (26-34); Mean Corpuscular Volume 103.4 fl (80-100); Monocytes Absolute Auto 0.4 K/mm3 (0.1-0.6); Monocytes Percent Auto 11.7 % (2.6-8.5); Neutrophils Absolute Auto 2.4 K/mm3 (1.3-6.7); Neutrophils Percent Auto 66.3 % (45.5-73.1); Red Cell Distribution Width 14.6 % (11.5-14.5); White Blood Count 3.6 K/mm3 (4.5-10.0)
[2023-10-06 18:54] LABS: Anion Gap 13 mmol/L (4-12); Blood Urea Nitrogen 16 mg/dL (7-17); Calcium 9.1 mg/dL (8.4-10.2); Carbon Dioxide 25 mmol/L (22-30); Chloride 99 mmol/L (98-107); Estimated Glomerular Filt Rate > 60; Glucose 183 mg/dL (65-110); Potassium 4.1 mmol/L (3.4-5.0); Sodium 137 mmol/L (137-145)
[2023-10-19 13:33] LABS: Serotonin 117 ng/mL (56-244)
[2023-10-27 15:26] LABS: Chromogranin A 128 ng/mL
== END 2023-10-06 07:22 | disposition home or self-care (01) ==
PROVIDERS: PCP Nurse Practitioner Adult Health; Visit Provider Internal Medicine Hematology & Oncology
DX: D3A.8 Other benign neuroendocrine tumors (principal)
CPT/HCPCS: 36415; 80048; 84260; 85025; 85055; 86316

== ENCOUNTER 2023-11-27 07:40 | Outpatient (CLI) | payer BC, SELFPAY ==
[2023-11-27 19:53] LABS: Basophils Percent Auto 0.6 % (0.2-1.2); Eosinophils Absolute Auto 0.2 K/mm3 (0-0.3); Eosinophils Percent Auto 4.8 % (0-4.4); Hematocrit 43.2 % (37.0-47.0); Hemoglobin 13.8 g/dL (12.0-15.0); Immature Granulocyte Absolute 0.02 K/mm3 (0.00-0.031); Immature Granulocyte Percent A 0.6 % (0-0.5); Lymphocytes Absolute Auto 0.53 K/mm3 (0.9-3.2); Lymphocytes Percent Auto 15.8 % (18.3-44.2); Mean Corpuscular HGB Conc 31.9 g/dl (32-36); Mean Corpuscular Hemoglobin 32.2 pg (26-34); Mean Corpuscular Volume 100.7 fl (80-100); Mean Platelet Volume 11.9 fl (7.4-10.4); Monocytes Absolute Auto 0.4 K/mm3 (0.1-0.6); Monocytes Percent Auto 12.5 % (2.6-8.5); Neutrophils Absolute Auto 2.2 K/mm3 (1.3-6.7); Neutrophils Percent Auto 65.7 % (45.5-73.1); Platelet Count Result 177 k/mm3 (150-375); Red Blood Count 4.29 M/mm3 (4.2-5.4); Red Cell Distribution Width 13.9 % (11.5-14.5); White Blood Count 3.4 K/mm3 (4.5-10.0)
[2023-11-27 22:05] LABS: Alanine Aminotransferase 121 U/L (6-35); Albumin Level 4.5 g/dL (3.5-5.1); Alkaline Phosphatase 101 U/L (38-126); Anion Gap 12 mmol/L (4-12); Aspartate Amino Transferase 133 U/L (14-36); Bilirubin,Total 0.7 mg/dL (0.2-1.3); Blood Urea Nitrogen 14 mg/dL (7-17); Calcium 9.6 mg/dL (8.4-10.2); Carbon Dioxide 26 mmol/L (22-30); Chloride 100 mmol/L (98-107); Estimated Glomerular Filt Rate > 60; Glucose 172 mg/dL (65-110); Potassium 4.3 mmol/L (3.4-5.0); Sodium 138 mmol/L (137-145)
[2023-12-11 18:54] LABS: Chromogranin A 68 ng/mL (ADULTS: <311); Serotonin 149 ng/mL (56-244)
== END 2023-11-27 07:41 | disposition home or self-care (01) ==
LOC: ANHCATHLAB 07:44 → ANHBWCLAB 07:45
PROVIDERS: PCP Nurse Practitioner Adult Health; Visit Provider Internal Medicine Hematology & Oncology
DX: D3A.8 Other benign neuroendocrine tumors (principal)
CPT/HCPCS: 36415; 80053; 84260; 85025; 86316

== ENCOUNTER 2023-12-02 06:47 | Outpatient (CLI) | payer BC, SELFPAY ==
--- NOTE | ~2023-12-02 | CT_ITS ---
CT of the Abdomen and Pelvis: Indication: Neuroendocrine tumor of liver Technique: 2.5 mm axial scans were obtained through the abdomen and pelvis following intravenous adm inistration of 100 cc of Omnipaque 350. Dose reduction technique was used on this scan by utilizing a utomated exposure control and iterative reconstruction technique. The dose-length product (DLP) was 5 78.90 mGy-cm. COMPARISON: 07/16/2023 Findings: Scans through the lung bases are unremarkable. Diffuse hepatic steatosis again present, with mild amorphous areas of minimal increased density in th e right hepatic lobe. Appearance is stable from prior exam. No definite discrete mass lesion evident in the liver. The spleen, pancreas, gallbladder, adrenals and kidneys are within normal limits. No e vidence of aortic aneurysm. No lymphadenopathy. No bowel obstruction or bowel wall thickening. There is no evidence to suggest acute appendicitis. St able small calcified mass in the mesentery in the right midabdomen the right lower quadrant measuring 1.7 cm (axial image 83). Images through the pelvis were performed. Urinary bladder unremarkable. No pelvic mass seen. No ascit es. Impression: No interval change. Stable small calcified mass in the right mesentery. Diffuse hepatic steatosis with mild heterogeneous appearance in the right hepatic lobe. Reviewed, dictated and finalized at location . Impression: No interval change. Stable small calcified mass in the right mesentery. Diffuse hepatic steatosis with mild heterogeneous appearance in the right hepat ic lobe.
== END 2023-12-02 06:48 | disposition home or self-care (01) ==
LOC: ANHIMG 06:49
PROVIDERS: PCP Nurse Practitioner Adult Health; Visit Provider Internal Medicine Hematology & Oncology
DX: R22.2 Localized swelling, mass and lump, trunk (principal); K76.0 Fatty (change of) liver, not elsewhere classified; D3A.8 Other benign neuroendocrine tumors
CPT/HCPCS: 74177; Q9967

== ENCOUNTER 2024-01-12 13:48 | Outpatient (CLI) | payer BC, SELFPAY ==
[2024-01-12 18:59] LABS: Cholesterol 259 mg/dL (0-200); HDL Direct 84 mg/dL; Triglycerides 111 mg/dL (<150)
[2024-01-12 19:10] LABS: LDL Cholesterol Direct 132 mg/dL
[2024-01-12 19:11] LABS: Hemoglobin A1C 7.8 % (<5.7)
== END 2024-01-12 13:49 | disposition home or self-care (01) ==
LOC: ANHBWCLAB 13:49
PROVIDERS: PCP Nurse Practitioner Adult Health; Visit Provider Nurse Practitioner Adult Health
DX: E11.59 Type 2 diabetes mellitus with other circulatory complications (principal)
CPT/HCPCS: 36415; 80061; 83036

== ENCOUNTER 2024-01-20 08:07 | Outpatient (CLI) | payer BC, SELFPAY ==
[2024-01-20 19:56] LABS: Basophils Percent Auto 0.8 % (0.2-1.2); Eosinophils Absolute Auto 0.2 K/mm3 (0-0.3); Eosinophils Percent Auto 5.6 % (0-4.4); Hemoglobin 14.5 g/dL (12.0-15.0); Immature Granulocyte Absolute 0.02 K/mm3 (0.00-0.031); Immature Granulocyte Percent A 0.5 % (0-0.5); Lymphocytes Percent Auto 15.2 % (18.3-44.2); Mean Corpuscular HGB Conc 32.2 g/dl (32-36); Mean Corpuscular Hemoglobin 31.7 pg (26-34); Mean Corpuscular Volume 98.3 fl (80-100); Mean Platelet Volume 12.2 fl (7.4-10.4); Monocytes Absolute Auto 0.4 K/mm3 (0.1-0.6); Monocytes Percent Auto 10.4 % (2.6-8.5); Neutrophils Absolute Auto 2.7 K/mm3 (1.3-6.7); Neutrophils Percent Auto 67.5 % (45.5-73.1); Platelet Count Result 188 k/mm3 (150-375); Red Blood Count 4.58 M/mm3 (4.2-5.4); Red Cell Distribution Width 12.7 % (11.5-14.5); White Blood Count 3.9 K/mm3 (4.5-10.0)
[2024-01-20 20:07] LABS: Alanine Aminotransferase 56 U/L (6-35); Albumin Level 4.4 g/dL (3.5-5.1); Alkaline Phosphatase 76 U/L (38-126); Anion Gap 5 mmol/L (4-12); Aspartate Amino Transferase 57 U/L (14-36); Bilirubin,Total 1.3 mg/dL (0.2-1.3); Blood Urea Nitrogen 18 mg/dL (7-17); Calcium 9.5 mg/dL (8.4-10.2); Carbon Dioxide 29 mmol/L (22-30); Chloride 104 mmol/L (98-107); Estimated Glomerular Filt Rate > 60; Glucose 174 mg/dL (65-110); Potassium 4.1 mmol/L (3.4-5.0); Sodium 138 mmol/L (137-145)
== END 2024-01-20 08:08 | disposition home or self-care (01) ==
LOC: ANHBWCLAB 08:10
PROVIDERS: PCP Nurse Practitioner Adult Health; Visit Provider Internal Medicine Hematology & Oncology
DX: D3A.8 Other benign neuroendocrine tumors (principal)
CPT/HCPCS: 36415; 80053; 85025

== ENCOUNTER 2024-03-04 12:13 | Emergency (ER) | payer BC, SELFPAY ==
[2024-03-04 12:18] VITALS: BP 133/59; PULSE 58; RESP 16; TEMP 36.6; O2SAT 99
--- NOTE | 2024-03-04 12:31 | ED_ITS ---
HPI - URI/Sore Throat General Chief Complaint: Upper Respiratory Infection Stated Complaint: upper respiratory Time Seen by Provider: 03/04/24 12:30 Source: patient, RN notes reviewed and old records reviewed Mode of arrival: ambulatory Limitations: no limitations History of Present Illness HPI Narrative: 63 year old female who presents to [facility] care with complaints of 1 week duration of head congestion, scratchy throat with congestion now going into her chest with patient reporting that she has history of asthma. Patient reports that she does have an inhaler and he has been using her inhaler some since yes terday. Patient reports that no one else at home is ill. Patient reports no known fevers or body aches, has been taking Karol, Coricidin, and using her inhaler without improvement in symptoms. MD elicited complaint: cough and sore throat Pertinent past history: asthma Onset (ago): week(s) (1) Consistency: progressively worsening Able to tolerate fluids by mouth: Yes Treatments prior to arrival: other (Karol, Coricidin Benadryl, inhaler) Related Data Home Medications ?Medication ?Instructions ?Recorded ?Confirmed ?Last Taken ?Type lancets 30 gauge ([employer] Delica #25 ea 03/02/19 01/20/24 09/13/20 History Lancets) 0 multivitamin 1 tablet PO DAILY 03/02/19 01/20/24 03/19/21 History calcium 600 mg (as 1 cap PO DAILY 02/21/20 01/20/24 03/19/21 History carbonate)-vitamin D3 5 mcg (200 unit) capsule (Calcium 600 + D(3)) potassium gluconate 595 mg (99 mg) 595 mg PO DAILY 02/21/20 01/20/24 03/19/21 History tablet fexofenadine 180 mg tablet 180 mg PO DAILY 02/14/21 01/20/24 03/19/21 History (Karol Allergy) omega 3-hrq-bnc-fish oil 1,200 mg 1 cap PO BID 03/12/21 01/20/24 03/19/21 History (144 mg-216 mg) capsule (Fish Oil) valsartan 320 mg tablet 160 mg PO DAILY 03/12/21 01/20/24 03/20/21 History biotin 5,000 mcg disintegrating 10,000 mcg PO DAILY 01/30/22 01/20/24 Unknown History tablet cholecalciferol (vitamin D3) 125 125 mcg PO DAILY 01/30/22 01/20/24 Unknown History mcg (5,000 unit) capsule carvedilol 1 tab-cap PO BID 12/15/23 01/20/24 Unknown History Allergies Allergy/AdvReac Type Severity Reaction Status Date / Time Sulfa (Sulfonamide AdvReac Mild Hives Verified 02/10/24 08:59 Antibiotics) Amlodipine Besylate Allergy Mild edema in Uncoded 02/10/24 08:59 both legs Amitriptyline AdvReac Mild Hypertensio Uncoded 02/10/24 08:59 n Simvastatin AdvReac Mild Muscle Pain Uncoded 02/10/24 08:59 Xermelo AdvReac Mild Diarrhea Uncoded 02/10/24 08:59 Review of Systems Review of Systems: CONSTITUTIONAL: Reports malaise,no chills, sweats, or fever. EYES: Denies visual changes, redness, or discharge. ENT: Reports rhinorrhea, congestion, sinus pain,no otalgia and positive for sore throat. CARDIOVASCULAR: Denies chest pain, palpitations, or edema. RESPIRATORY: Reports cough.? Denies dyspnea. GASTROINTESTINAL: Denies abdominal pain, nausea, vomiting, diarrhea SKIN: Denies rash or itching. MUSCULOSKELETAL: Denies myalgia. NEUROLOGIC: Reports some headache. All systems reviewed & are unremarkable except as noted in HPI and below PMFSH Past Medical History Medical History Neuroendocrine carcinoma metastatic to liver Liver mass, left lobe IBS (irritable bowel syndrome) Hypertension Type 2 diabetes mellitus with other circulatory complications Hyperlipidemia due to type 2 diabetes mellitus Surgical History Surgical History Hx of tonsillectomy S/P rotator cuff repair H/O spinal fusion History of hemorrhoidectomy Family History Family History Mother Family history of malignant neoplasm Other Diabetes mellitus Family history of cardiovascular disease Hypertension Social History Social History Social History: Pt states she quit about 15 yrs ago Smoking packs per day: 0.5 Smoking cigarettes per day: 10.0 Years smoked: 7 Smoking pack-years: 3.50 Smoking status: Former smoker Tobacco type: cigarettes Smoking end date: 03/15/06 Alcohol intake: current Drinks per week: 1 Alcohol use details: occasionally Substance use: never Substance use type: does not use Lack of Transportation: No Lack of Food: Never True Current Housing: I Have Housing Concerned About Future Housing: No Difficulty Paying Gas/Electric Bills: No Difficulty Paying for Meds: No Currently Unemployed: No Education: Bachelor's Degree Difficulty w/ Childcare or Family Care: No Living arrangements: with family 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 There is no relevant family history pertinent to the presenting complaint Exam Narrative: GENERAL: Well-appearing, well-nourished, and in no acute distress. HEAD: Normocephalic EYES: PERRLA, conjunctivae clear ENT: Nares clear, turbinates edematous and erythematous, clear discharge. Mucous membranes moist. TM pearly worthy with dull light reflex bilaterally; no tragal tenderness. Oropharynx erythematous without lesions. Tonsils not present and throat without exudate, no drooling, no hoarseness, no trismus, uvula midline, post nasal drainage noted. NECK: Supple. No lymphadenopathy CHEST: Clear to auscultation, breath sounds equal. No wheezing, rhonchi, rales, or stridor. No respiratory distress, speaks in full sentences.cough noted SAO2 99% on room air HEART: Regular rate and rhythm. No murmur heard. SKIN: Warm, dry, no rash. NEURO: Alert and oriented x3. PSYCH: Normal mood and affect Course Course Emergency Course: Patient is aware of diagnosis, understands and agrees to treatment plan.? Anticipatory guidance given.? Patient agrees to follow-up as directed and is aware of reasons to seek care at the emergency department. Portions of this record may have been created with voice recognition software Level of Care: Express Care Visit Vital Signs Vital signs: Vital Signs Temperature 36.6 C 03/04/24 12:18 Pulse Rate 58 L 03/04/24 12:18 Respiratory Rate 16 03/04/24 12:18 Blood Pressure 133/59 L 03/04/24 12:18 Pulse Oximetry 99 03/04/24 12:18 Oxygen Delivery Room Air 03/04/24 12:18 Temperature 36.6 C 03/04/24 12:18 Pulse Rate 58 L 03/04/24 12:18 Respiratory Rate 16 03/04/24 12:18 Blood Pressure 133/59 L 03/04/24 12:18 Pulse Oximetry 99 03/04/24 12:18 Oxygen Delivery Room Air 03/04/24 12:18 Reviewed MDM - URI/Sore Throat MDM Narrative Medical decision making narrative: Differential diagnosis considered: Churchill virus, strep pharyngitis, allergic rhinitis, upper respiratory tract infection, sinusitis, rhinosinusitis, nasopharyngitis. viral pharyngitis, otitis media, otitis externa, pneumonia, bronchitis, viral cough syndrome, viral syndrome, and influenza.? Exam findings show no acute concerns or changes; patient is non-toxic appearing and is in no distress.? Patient is appropriate for outpatient treatment and follow-up. Differential Diagnosis Differential diagnosis: Likely upper respiratory infection, sinusitis, viral infection, pharyngitis and other (acute cough) Medical Records Attestation: I reviewed the patient's medical records. Lab Data Attestation: I reviewed the patient's lab results. Critical Care Time Critical Care Time Critical Care Time: No Discharge Plan Discharge Clinical Impression: Sinusitis Qualifiers: Sinusitis location: pansinusitis Chronicity: acute Recurrence: not specified as recurrent Qualified Code(s): J01.40 - Acute pansinusitis, unspecified Cough Qualifiers: Cough type: acute Qualified Code(s): R05.1 - Acute cough Patient Disposition: Home, Self-Care Condition: Stable Instructions: Antibiotic Form, Sinusitis (ED), Acute Cough (ED) Additional Instructions: Increase fluids especially juices and water Sxue-fhx-tumjfxe cough and cold medicine of your choice for your symptoms Continue your Karol and Coricidin daily my use Benadryl at night Continue your inhaler/nebulizer as directed Steroids as directed--take with food heat to the face 20-30 minutes 4-6 times a day for pain Salt water gargles, throat lozenges or throat sprays as desired Antibiotic as directed--finished the medication If your symptoms persist, change or worsen significantly before you can contact your personal physician then please, without delay, go to the emergency department for further evaluation. Follow-up with PCP in 7-10 days or sooner if needed Follow up with PCP soon in regards to your blood pressure which is elevated above threshold for referral. Blood pressure above 120/80 may indicate pre- hypertension. 133/59 Patient Language: Ukrainian Prescriptions: New amoxicillin-pot clavulanate 875-125 mg tablet 1 tablet PO Q12H Qty: 20 0RF Rx Instructions: take with food Recommend taking a probiotic or eating Activa yogurt while on this medication prednisone 20 mg tablet 20 mg PO BID 5 Days Qty: 10 0RF Rx Instructions: take with food No Action carvedilol 25 mg 1 tab-cap PO BID Calcium 600 + D(3) 600 mg calcium- 200 unit capsule 1 cap PO DAILY potassium gluconate 595 mg (99 mg) tablet 595 mg PO DAILY fexofenadine [Karol Allergy] 180 mg tablet 180 mg PO DAILY cholecalciferol (vitamin D3) 125 mcg (5,000 unit) capsule 125 mcg PO DAILY biotin 5,000 mcg tablet,disintegrating 10,000 mcg PO DAILY multivitamin Tablet 1 tablet PO DAILY (DME) lancets [OneTouch Delica Lancets] 30 gauge misc See Rx Instructions .ROUTE .MEDSUPPLY Qty: 25 Rx Instructions: Use to test BS bid omega 2-dmn-ybo-fish oil [Fish Oil] 1,200 (144-216) mg capsule 1 cap PO BID valsartan 320 mg tablet 160 mg PO DAILY (DME) OneTouch Verio test strips Strip See Rx Instructions .ROUTE .MEDSUPPLY Qty: 300 1RF Rx Instructions: test bs bid albuterol sulfate 90 mcg/actuation HFA aerosol inhaler 2 puff inhalation Q4H PRN (Reason: shortness of breath or wheezing) Qty: 8.5 0RF metformin 500 mg tablet extended release 24 hr See Rx Instructions .ROUTE .COMPLEX Qty: 360 3RF Dose Instruction: TAKE 2 TABLETS (1000 MG) TWICE A DAY Rx Instructions: TAKE 2 TABLETS (1000 MG) TWICE A DAY Jardiance 10 mg tablet See Rx Instructions .ROUTE .COMPLEX Qty: 90 3RF Dose Instruction: TAKE 1 TABLET DAILY Rx Instructions: TAKE 1 TABLET DAILY Follow-up/Referrals: Noreen Bryan APRN [Primary Care Provider] - Time of Disposition: 12:54 Quality Ivrgil Coma Scale Eyes: Open Verbal: Oriented and Alert Motor: Follows Commands Campbell Coma Total Score: 15
== END 2024-03-04 13:02 | disposition home or self-care (01) ==
PROVIDERS: Emergency Provider Registered Nurse; PCP Nurse Practitioner Adult Health
DX: J01.40 Acute pansinusitis, unspecified (principal); R05.1 Acute cough; C7A.8 Other malignant neuroendocrine tumors; C78.7 Secondary malignant neoplasm of liver and intrahepatic bile duct; I10 Essential (primary) hypertension; E11.9 Type 2 diabetes mellitus without complications; E78.5 Hyperlipidemia, unspecified; J45.909 Unspecified asthma, uncomplicated; Z87.891 Personal history of nicotine dependence
CPT/HCPCS: 99213; G0463

== ENCOUNTER 2024-06-29 13:05 | Outpatient (CLI) | payer BC, SELFPAY ==
--- OUTSIDE RECORDS SUMMARY | 2024-06-29 13:24 | XMS_ITS | Referral Summary ---
Author Organization [facility] [place] [facility] [place] [address] [facility] lt Address [address] [place] [address] Care Team Providers Care Security Vehicle Patrol Officer Name Role Phone Gil Huggins MD Primary Care Provider [phone] Encounters Date Type Department Care Team Description 06/07/2024 10:15 AM CDT Infusion [facility] [address] [place] [address] Neuroendocrine cancer (HCC) (Primary Dx) 06/06/2024 Orders Only [facility] Oncology [address] [facility] [address] [place] [address] David Alvarez MD 05/10/2024 9:30 AM CDT Infusion [place] [address] [address] Neuroendocrine cancer (HCC) (Primary Dx) 05/08/2024 9:02 AM CDT - 05/08/2024 11:59 PM CDT Hospital Encounter [facility] 1 [place] [address] Screening mammogram, encounter for Discharge Disposition: Discharge to home or self care 04/28/2024 Orders Only [facility] Oncology [address] [facility] Floor 5 [place] [address] Jamal Case 04/12/2024 8:45 AM POISING INSPECTOR Infusion [facility] [address] [place] [address] [address] Neuroendocrine cancer (HCC) (Primary Dx) from Last 3 Months Allergies Active Allergy Reactions Criticality Noted Date Comments Amlodipine Besylate Edema Medium 08/27/2021 Simvastatin Muscle pain Medium 08/27/2021 Sulfa (Sulfonamide Antibiotics) Hives High 09/2021 Telotristat Ethyl Diarrhea Low 08/27/2021 Medications carvediloL (COREG) 25 mg tablet Take 1 tablet (25 mg total) by mouth 2 (two) times a day 2 Active diltiazem (TIAZAC) 300 mg 24 hr capsule Take by mouth 2 Active magnesium oxide (MAG-OX) 400 mg (241.3 mg elemental magnesium) tablet Take by mouth 2 Active valsartan (DIOVAN) 320 mg tablet valsartan 320 mg tablet 2 Active fexofenadine (SILVIA) 180 mg tablet Take 1 tablet (180 mg total) by mouth Active metFORMIN XR (GLUCOPHAGE XR) 500 mg 24 hr tablet 2 Active MELATONIN ORAL Take 10 mg by mouth Active calcium carbonate-vitam in D3 1500 mg (600 mg elemental) -200 units per tablet Take by mouth Active omega 2-eba-slv-fish oil 1,200 (144-216) mg capsule Take by mouth Active vitamin B complex no.7-ivmxi-Z-bi otin 1-60-300 mg-mg-mcg tablet Take 300 mcg by mouth daily Active empagliflozin (JARDIANCE) 10 mg tablet Take 1 tablet (10 mg total) by mouth daily Active potassium gluconate 595 mg (99 mg) tablet Take 1 tablet (595 mg total) by mouth daily Active Active Problems Problem Noted Date Diagnosed Date 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 04/06/2021 Immunizations Immunization Administration Dates Next Due Influenza, Unspecified 12/06/2020 Social History Tobacco Use Types Packs/Day Years Used Date Smoking Tobacco: Former Cigarettes Smokeless Tobacco: Never Tobacco Cessation:Counseling Given: Not Answered Comments No Sex and Gender Information Value Date Recorded Sex Assigned at Not on file Legal Sex Female 2:57 AM POISING INSPECTOR Gender Identity Not on file Sexual Orientation Not on file Last Filed Vital Signs Vital Sign Reading Time Taken Comments Blood Pressure 171/70 06/07/2024 10:36 AM CDT Pulse 56 06/07/2024 10:36 AM CDT Temperature 36.4 C (97.6 F) 06/07/2024 10:36 AM CDT Respiratory Rate 18 06/07/2024 10:36 AM CDT Oxygen Saturation 97% 06/07/2024 10:36 AM CDT Inhaled Oxygen Concentration - - Weight 67.9 kg (149 lb 9.6 oz) 06/07/2024 10:36 AM CDT Height 156.2 cm (5' 1.5 ) 02/16/2024 9:59 AM POISING INSPECTOR Body Mass Index 27.81 02/16/2024 9:59 AM POISING INSPECTOR Plan of Treatment Not on file Procedures Procedure Name Priority Date/Time Associated Diagnosis Comments SCREENING MAMMOGRAM BILATERAL W JACK Schedule Routine, Read Routine (OP Routine) 05/08/2024 9:27 AM CDT Screening mammogram, encounter for COLONOSCOPY 09/18/2012 12:00 AM CDT from Last 3 Months or Most Recently Relevant to Health Maintenance Results * Screening Mammogram Bilateral W Jack (05/08/2024 9:27 AM CDT) Anatomical Region Laterality Modality Breast Bilateral Mammography 05/10/2024 10:4 8 PM CDT Impressions 05/10/2024 10:48 PM CDT There is no mammographic evidence to suggest malignancy. The patient may continue screening mammography as per ACR guidelines. FINAL ASSESSMENT: BI-RADS Category 1: Negative. Electronically signed by: Mery Jaime M.D. Narrative 05/10/2024 10:48 PM CDT EXAMINATION: BILATERAL SCREENING MAMMOGRAM WITH TOMOGRAPHY HISTORY: Screening. COMPARISON(S): 2021 TECHNIQUE: Full-field 2D images and digital tomosynthesis images were obtained. CAD was utilized. BREAST PARENCHYMAL COMPOSITION: There are scattered areas of fibroglandular density. FINDINGS: There are no suspicious masses. No suspicious calcifications are seen. There is no unexplained architectural distortion. There is no skin thickening seen. There are no mammographically abnormal lymph nodes seen in the axillae or elsewhere. us Self Screening Mammogram IMG MAMMO PROCEDURES Fi nal Result * COLONOSCOPY (09/18/2012 12:00 AM CDT) Anatomical Region Laterality Modality Other Narrative 09/18/2012 12:00 AM CDT Ordered by an unspecified provider. Procedure Note ProviderBc MD - 09/18/2012 12:00 AM CDT PROCEDURE REPORT Patient: FENG MITCHELL. Account: [id number] Room No: : 1960 Patient Type: SDS Attend.: Danis Hernandez M.D. Admit Date: 09/18/2012 Dict.: Danis Hernandez M.D. Disch. Date: PROCEDURE PERFORMED: Colonoscopy. HISTORY: 52-year-old female presents for screening colonoscopy. PHYSICAL EXAMINATION: Well-developed female. Lungs are clear.Cardiovascular examination was unremarkable. PROCEDURE: Colonoscopy was performed with the Olympus video endoscope.The patient was premedicated by anesthesia. On digital exam she has grade IIto III hemorrhoids. We inserted the endoscope and advanced it to the cecum.The colon was well prepped and visualized. She does have significantdiverticular disease involving both the right and the left colon. However, no evidenceof inflammation or neoplasia was able to be demonstrated. The patienttolerated the procedure without difficulty. POSTOPERATIVE DIAGNOSES: 1. Diffuse diverticulosis. 2. Hemorrhoidal disease. PLAN: Surveillance 10 years. Danis Hernandez M.D. DR/baylee TD: 09/18/2012 14:03 CC: Jerome Carreon M.D. Authenticated by Danis Hernandez MD On 09/21/2012 10:03:15 AM Historical Provider ENDOSCOPY PROCEDURES Dimple l Result from Last 3 Months or Most Recently Relevant to Health Maintenance Insurance [address] [place] [facility] Care Teams Security Vehicle Patrol Officer Relationship Specialty Start Date End Date Gil Huggins MD [address] [place] [address] PCP - General Family Practice 05/03/24
--- OUTSIDE RECORDS SUMMARY | 2024-06-29 13:24 | XMS_ITS | Clinical Summary ---
Author Organization [facility] Address [address] [place] [address] Care Team Providers Care Ear Flap Binder Name Role Phone Gil Huggins MD Primary Care Provider [phone] Cedrick Salcedo MD Unavailable Allergies Active Allergy Reactions Criticality Noted Date Comments Amitriptyline Other (see comment) Low 12/12/2022 High BP Amlodipine Swelling Low 12/12/2022 Edema in legs Simvastatin Myalgias Low 12/12/2022 Sulfa Antibiotics Hives Medium 12/05/2022 Telotristat Diarrhea Low 12/12/2022 Medications carvedilol (COREG) 25 MG tablet Take 1 tablet (25 mg total) by mouth 2 (two) times daily. Active magnesium oxide (MAG-OX) 400 (240 Mg) MG tablet Take 1 tablet (400 mg total) by mouth 2 (two) times daily. Active valsartan (DIOVAN) 160 MG tablet Take 1 tablet (160 mg total) by mouth daily. Active dilTIAZem CD (CARDIZEM CD) 180 MG 24 hr capsule Take 1 capsule (180 mg total) by mouth nightly. Active aspirin 81 MG chewable tablet Chew 1 tablet (81 mg total) by mouth daily. Active metFORMIN (GLUCOPHAGE) 500 MG tablet Take 1 tablet (500 mg total) by mouth 2 (two) times daily with meals. Active empagliflozin (JARDIANCE) 10 MG tablet Take 1 tablet (10 mg total) by mouth daily. Active fexofenadine (SILVIA) 180 MG tablet Take 1 tablet (180 mg total) by mouth daily. Active fish oil (OMEGA-3 FATTY ACID) 1000 MG Cap capsule Take 1 capsule (1,000 mg total) by mouth daily. Active vitamin D3, cholecalciferol , 125 mcg capsule Take 1 capsule (125 mcg total) by mouth daily. Active biotin 300 MCG Tab Take 1 tablet (300 mcg total) by mouth daily. Active calcium carbonate-vitam in D 600-5 MG-MCG Tab Take 1 tablet by mouth 2 (two) times daily with meals. Active Potassium 99 MG tablet Take 1 tablet by mouth daily. Active melatonin 5 MG tablet Take 2 tablets (10 mg total) by mouth nightly as needed. Active HYDROcodone-andria taminophen (NORCO) 5-325 MG tabletIndicatio ns:Acute Pain < 7 Day Supply Take 1 tablet by mouth every 4 (four) hours as needed for Pain. Indications: Acute Pain < 7 Day Supply 20 tablet 12/12/2022 Active Active Problems No known active problems Family History Medical History Relation Comments Heart Disease Maternal Grandmother enlarged he art Hypertension Maternal Grandmother Arthritis Other Hyperlipidemia Other Relation Status Comments Maternal Grandmother Other Social History Tobacco Use Types Packs/Day Years Used Date Smoking Tobacco: Former Cigarettes 0.5 20 1 7 - 2006 Smokeless Tobacco: Never Alcohol Use Standard Drinks/Week Comments Yes 3 (1 standard drink = 0.6 oz pur e alcohol) Comments No Sex and Gender Information Value Date Recorded Sex Assigned at Not on file Legal Sex Female 4:10 PM CDT Gender Identity Not on file Sexual Orientation Not on file Last Filed Vital Signs Vital Sign Reading Time Taken Comments Blood Pressure 156/93 12/12/2022 11:45 AM CDT Pulse 52 12/12/2022 11:45 AM CDT Temperature 36.1 C (97 F) 12/12/2022 11:45 AM CDT Respiratory Rate 18 12/12/2022 11:4 5 AM CDT Oxygen Saturation 95% 12/12/2022 11: 45 AM CDT Inhaled Oxygen Concentration - - Weight 72.9 kg (160 lb 11.5 oz) 12/12/2022 8:00 AM CDT Height 157.5 cm (5' 2 ) 12/12/2022 8:00 AM CDT Body Mass Index 29.4 12/12/2022 8:00 AM CDT Plan of Treatment Health Maintenance Due Date Last Done Comments Cervical Cancer Screening Pa p Smear (Age 30 to 64) Every 3 Years 1960 Colorectal Cancer Screening Colonoscopy (10 Years) 1960 Annual Physical 1963 Hepatitis C 1978 Cervical Cancer Screening Pa p with HPV Testing (Age 30 to 64) Every 5 Years 1990 Cervical Cancer Screening wi th HPV 1990 Mammogram Screening 2000 COVID-19 Vaccine ( - 2023-2 5 season) 2023 01/14/2022, 01/19/2021, 04/23/2020 DTaP, Tdap and Td Vaccines ( 2 - Td or Tdap) 09/02/2032 09/02/2022 RSV Immunization or 60+ Years (1 - 1-dose 75+ series) 2035 Zoster Vaccines Completed 09/29/2020, 07/20/2020 Pneumococcal Vaccine: 50+ Years Completed 01/14/2022, 09/03/2016, 09/15/2014 Meningococcal B Vaccine Aged Out No l onger eligible based on patient's age to complete this topic Meningococcal Vaccine Aged Out No mayte dimas eligible based on patient's age to complete this topic RSV Immunizations Under 20 Months Aged Out No longer eligible b ased on patient's age to complete this topic Medical Devices Implanted Type Area Bottler Device Identifier Shelf Expiration Date Model / Serial / Lot Sling Obtryx Ii Halo - [id number] Implanted:Qty: 1 on 12/12/2022 by Poncho Leon MD at [facility] Athlete Builder [facility] [id number] 10/22/2025 [id number] / / [id number] [place] [id number] [facility] Care Teams Ear Flap Binder Relationship Specialty Start Date End Date Gil Huggins MD [address] [place] [address] PCP - General FAMILY PRACTICE 12/05/22 Cedrick Salcedo MD [address] [place] [address] CARDIOVASCULAR DISEASE 12/05/22
--- OUTSIDE RECORDS SUMMARY | 2024-06-29 13:24 | XMS_ITS | Clinical Summary ---
Author Organization [facility] Address [address] [place] [address] Care Team Providers Care Label Rewinder Name Role Phone Glory Vail RN Unavailable [phone] Jayden Oswald MD Primary Care Provider Source Comments [facility],non-owned Affiliates and Associated Physician Practices is amultiple site organization consisting of ambulatory clinics and hospital sitesin [place], [place], [place] and [place]. This disclosure is being madepursuant to the Care Everywhere program and may not contain all information available regarding this patient. Last updated 17.[facility] Allergies Active Allergy Reactions Criticality Noted Date Comments Sulfa Drugs 08/01/2014 Medications * Be aware that medications may not be up to date on this document. Alwaysverify current medications with the patient. METFORMIN HCL ER PO Take 500 mg by mouth at bedtime Active losartan (COZAAR) 100 MG tablet Take by mouth once daily Active METOPROLOL SUCCINATE ER PO Take 50 mg by mouth 2 times daily Active amitriptyline (ELAVIL) 25 MG tablet Take 50 mg by mouth at bedtime Active fexofenadine (SILVIA) 180 MG tablet Take 180 mg by mouth as needed for Runny Nose or Allergies Active acetaminophen (TYLENOL) 500 MG capsule Take 500 mg by mouth every 4 hours as needed for Fever or Pain Active Loperamide HCl (IMODIUM A-D PO) Take 2 mg by mouth as needed Active clobetasol propionate (CLOBEX) 0.05 % spray by Apply externally route every 7 days Applies to feet Active Calcitriol 3 MCG/GM OINT by Apply externally route 2 times daily Applies to feet Active oxyCODONE-aceta minophen (PERCOCET) 5-325 MG tablet Take 2 Tabs by mouth every 4 hours as needed 40 Tab 0 5 Active Additional Information Patient not taking.Reported on 11/07/2014 cyclobenzaprine (FLEXERIL) 10 MG tablet Take 1 Tab by mouth every 8 hours as needed for Muscle Spasms 42 Tab 0 5 Active Additional Information Patient not taking.Reported on 11/07/2014 Active Problems No known active problems Immunizations Immunization Administration Dates Next Due PNEUMOCOCCAL PPSV23 09/15/2014 Family History Medical History Relation Name Comments Arthritis - Rheumatoid Father Hypertension Father Arthritis - Osteo Mother Arthritis - Rheumatoid Mother Cancer Mother Stroke Mother Relation Name Status Comments Brother 1 Alive Brother 2 Alive Brother 3 Alive Father Alive Mother Social History Tobacco Use Types Packs/Day Years Used Date Smoking Tobacco: Former Cigarettes Q uit: 09/06/2006 Alcohol Use Standard Drinks/Week Comments Yes 0 (1 standard drink = 0.6 oz pur e alcohol) Comments No Sex and Gender Information Value Date Recorded Sex Assigned at Not on file Legal Sex Female 9:23 AM CDT Gender Identity Not on file Sexual Orientation Not on file 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 Not on file Not on file Last Filed Vital Signs Vital Sign Reading Time Taken Comments Blood Pressure 112/54 09/16/2014 11:00 AM CDT Pulse 91 09/16/2014 11:00 AM CDT Temperature 37.2 C (98.9 F) 09/16/2014 11:00 AM CDT Respiratory Rate 20 09/16/2014 11:0 0 AM CDT Oxygen Saturation 92% 09/16/2014 11: 00 AM CDT Inhaled Oxygen Concentration - - Weight 76.1 kg (167 lb 12.8 oz) 09/14/2014 6:27 AM CDT Height 157.5 cm (5' 2 ) 09/14/2014 6:27 AM CDT Body Mass Index 30.69 09/14/2014 6:27 AM CDT Plan of Treatment Health Maintenance Due Date Last Done Comments JUAN (AGES 45-75) - COL ON CA SCREENING 1960 COLON MONITORING 1960 COLONOSCOPY - COLON CA SCREENING 1960 CT COLONOGRAPHY - COLON CA SCREENING 1960 Colorectal Cancer Screening 1960 FIT - COLON CA SCREENING 1960 FLEX SIG - COLON CA SCREENING 1960 LIPID TESTING 1960 MAMMOGRAM 1960 HIV SCREENING 1975 HEPATITIS C SCREENING 03/17/1978 DTAP/TDAP/TD VACCINES (1 - Tdap) 1979 ZOSTER VACCINE (1 of 2) 2010 PNEUMOCOCCAL VACCINE 50+ (2 of 2 - PCV) 09/16/2015 09/15/2014 COVID-19 VACCINE (1 - 2023-2 5 season) 2023 DEPRESSION SCREENING 02/18/2024 INFLUENZA VACCINE (Season Ended) 2024 Respiratory Syncytial Virus (RSV) Vaccine Pt: or over 60 yrs (1 - 1-dose 75+ series) 2035 HEPATITIS B VACCINE Aged Out No longe r eligible based on patient's age to complete this topic HIB VACCINE Aged Out No longer eligi ble based on patient's age to complete this topic HPV VACCINE Aged Out No longer eligi ble based on patient's age to complete this topic MENINGOCOCCAL (Group B) VACC INE SHARED DECISION-MAKING Aged Out No longer eligibl e based on patient's age to complete this topic MENINGOCOCCAL GROUPS A/C/Y/W VACCINE Aged Out No longer eligible b ased on patient's age to complete this topic Medical Devices Implanted Type Area Rand Butter Device Identifier Shelf Expiration Date Model / Serial / Lot Bone Canc Crush 15cc Implanted:Qty: 1 on 09/14/2014 by Nikhil Rutledge MD at [facility] [employer] 12/14/2018 [id number] / / Crosslink Implanted:Qty: 1 on 09/14/2014 by Nikhil Rutledge MD at [facility] [id number] / / Putty Dbm Progenix 5cc Implanted:Qty: 1 on 09/14/2014 by Nikhil Rutledge MD at [facility] [employer] 03/31/2016 [id number] / / [id number] Locking Nut Implanted:Qty: 6 on 09/14/2014 by Nikhil Rutledge MD at [facility] [id number] / / Connector Implanted:Qty: 6 on 09/14/2014 by Nikhil Rutledge MD at [facility] [id number] / / Screw Implanted:Qty: 6 on 09/14/2014 by Nikhil Rutledge MD at [facility] [id number] / / Tlif Cage Implanted:Qty: 1 on 09/14/2014 by Nikhil Rutledge MD at [facility] [id number] / / Tlif Cage Implanted:Qty: 1 on 09/14/2014 by Nikhil Rutledge MD at [facility] [id number] / / Derek Implanted:Qty: 2 on 09/14/2014 by Nikhil Rutledge MD at [facility] [id number] / / Crosslink Implanted:Qty: 1 on 09/14/2014 by Nikhil Rutledge MD at [facility] [id number] / / [place] [place] [address] Member Subscriber Plan / Payer (Ef fective for All Dates) Name:Feng Mitchell Relation to Subscriber:Self Name:Feng Mitchell Payer ID:Not on file Type:PPO Address: [address] Advance Directives Documents on File Type Date Recorded Patient Chaplaincy Expl anation Adv Directive/Living Will/POA 09/15/2014 10:11 PM * Full Code (Latest Code Status on File) Date Activated Date Inactivated Comments 09/14/2014 4:21 PM 09/16/2014 2:20 PM Care Teams Label Rewinder Relationship Specialty Start Date End Date Jayden Oswald MD [address] [place] [address] PCP - General 10/13/20 Glory Vail, RN Field Support Technician 09/14/14
--- OUTSIDE RECORDS SUMMARY | 2024-06-29 13:24 | XMS_ITS | Encounter Summary ---
Author Organization [facility] [employer] [facility] Address [address] [place] [address] Care Team Providers Care Chronic Specialist Name Role Phone Gil Huggins MD Primary Care Provider [phone] Encounter Details Date Type Department Care Team (Late st Contact Info) Description 06/26/2022 Abstract [facility] Oncology and Hematology - [place] [address] [address] Aly Washington RN Social History Tobacco Use Types Packs/Day Years Used Date Smoking Tobacco: Never Smokeless Tobacco: Never Alcohol Use Standard Drinks/Week Comments Not Currently 0 (1 standard drink = 0.6 oz pur e alcohol) Comments No Sex and Gender Information Value Date Recorded Sex Assigned at Not on file Legal Sex Female 2:00 PM DIRECTOR OF DESIGN Gender Identity Not on file Sexual Orientation Not on file COVID-19 Exposure Response Date Recorded In the last 10 days, have yo u been in contact with someone who was confirmed or suspected to have Coronavirus/COVID-19? No / Unsure 06/25/2022 9:17 AM CDT documented as of this encounter Plan of Treatment Not on file documented as of this encounter Visit Diagnoses Not on filedocumented in this encounter Care Teams Chronic Specialist Relationship Specialty Start Date End Date Gil Huggins MD [address] [address] PCP - General Family Practice 10/15/22 documented as of this encounter
--- OUTSIDE RECORDS SUMMARY | 2024-06-29 13:24 | XMS_ITS | Encounter Summary ---
Author Organization [facility] [employer] [facility] Address [address] [place] [address] Care Team Providers Care Dorr Operator Name Role Phone Gil Huggins MD Primary Care Provider [phone] Encounter Details Date Type Department Care Team (Late st Contact Info) Description 06/28/2024 Orders Only [facility] Oncology and Hematology - [place] [address] [address] Kenrick Espinosa MD [address] [facility] [address] [place] [address] Neuroendocrine tumor of liver (CMS/HCC) Social History Tobacco Use Types Packs/Day Years Used Date Smoking Tobacco: Never Smokeless Tobacco: Never Alcohol Use Standard Drinks/Week Comments Not Currently 0 (1 standard drink = 0.6 oz pur e alcohol) Comments No Sex and Gender Information Value Date Recorded Sex Assigned at Not on file Legal Sex Female 2:00 PM GEOTHERMAL POWERPLANT SUPERVISOR Gender Identity Not on file Sexual Orientation Not on file documented as of this encounter Plan of Treatment Not on file documented as of this encounter Visit Diagnoses Diagnosis 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
--- OUTSIDE RECORDS SUMMARY | 2024-06-29 13:24 | XMS_ITS ---
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 04/06/2021 Current Treatment and Therapy Plans Octreotide 28 Day Cycles - Carcinoid* Plan Start Date:03/14/2024 Plan Provider:David Alvarez MD Linked Problems Neuroendocrine cancer (HCC) Treatment Medications Current Day (Day 1 , Cycle 5 - Planned for 07/05/2024) Next Day (Day 1, Cycle 6 - Planned for 08/02/2024) octreotide (SandoSTATIN LAR)octreotide LAR (SandoSTATIN LAR) octreotide LAR (SandoSTATIN LAR) extended release intramuscular injection 30 mg octreotide LAR (SandoSTATIN LAR) extended release intramuscular injection 30 mg Past Treatment and Therapy Plans No past plan information found.
--- OUTSIDE RECORDS SUMMARY | 2024-06-29 13:24 | XMS_ITS | CONTINUITY OF CARE DOCUMENT ---
Author Name wendy yamilgeovani Address Unknown Organization [facility] Address [address] [place] [address] Phone [phone] Care Team Providers Care Heading Matcher And Assembler Name Role Phone Cedrick Salcedo MD Unavailable MD FRANCISCA, BURT Unavailable MD FRANCISCA, BURT Unavailable PROBLEMS Condition Status Date Provider Notes Hypertension active Cedrick Salcedo MD Diabetes, Type 2 active Cedrick Salcedo MD Screening for Pheochromocytoma active Cedrick Salcedo MD Intermittent palpitations active Margot bee MD Neoendocrine Cancer active Cedrick Salcedo MD ENCOUNTERS Date Type Provider Location Encounter Diag nosis - In-person encounter Office Visit Cedrick Salcedo [facility] - In-person encounter Office Visit Cedrick Salcedo [facility] - In-person encounter Office Visit Cedrick Salcedo [facility] - In-person encounter Office Visit Cedrick Salcedo MD [facility] - In-person encounter Office Visit Cedrick Salcedo MD [facility] - In-person encounter Office Visit Cedrick Salcedo MD [facility] - In-person encounter Office Visit Jason Vega MD [facility] - In-person encounter Office Visit Cedrick Salcedo MD [facility] Neoendocrine Cancer - In-person encounter Office Visit Margot Marcial MD [facility] Intermittent palpitations - In-person encounter Office Visit Cedrick Salcedo MD [facility] HypertensionDiabetes , Type 2Screening for Pheochromocytoma VITAL SIGNS Date Observation Value Provider Body Mass Index (Ratio) 28.71 kg/m2 Richmond Salcedo MD blood pressure, diastolic 88 mm[Hg] Timo ibarra [facility] blood pressure, systolic 174 mm[Hg] Elizabeth jimenes [facility] oxygen saturation, oximetry 99 % Radha [facility] pulse rate 58 /min Radha [facility] blood pressure, cuff size regular Timo ibarra [facility] weight E&M 157 [lb_av] Radha [facility] height E&M 62 [in_i] [facility] Body Mass Index (Ratio) 30.36 kg/m2 Richmond Salcedo MD blood pressure, cuff size regular [facility] blood pressure, diastolic 78 mm[Hg] [facility] blood pressure, systolic 143 mm[Hg] [facility] weight E&M 166 [lb_av] [facility] height E&M 62 [in_i] Kenya Sieper pulse rate 60 /min Kenya Sieper oxygen saturation, oximetry 97 % Kenya Sieper respiratory rate E&M 16 /min Kenya campo Body Mass Index (Ratio) 30.36 kg/m2 Richmond Salcedo MD blood pressure, diastolic 77 mm[Hg] Megan sandersonLogmeme blood pressure, systolic 145 mm[Hg] Antoinette kLogic oxygen saturation, oximetry 97 % Kenya Macedo respiratory rate E&M 16 /min Kenya Knutson iller blood pressure, cuff size regular Joselyn Macedo blood pressure, diastolic 69 mm[Hg] Us leon Denisse ISBELL blood pressure, systolic 131 mm[Hg] Juana reynoso Denisse ISBELL pulse rate 54 /min Kenya Macedo weight E&M 166 [lb_av] Kenya Macedo height E&M 62 [in_i] Kenya Maecdo Body Mass Index (Ratio) 29.99 kg/m2 Richmond Salcedo MD blood pressure, diastolic 93 mm[Hg] Nell Reeves blood pressure, systolic 169 mm[Hg] [facility] aung Reeves oxygen saturation, oximetry 97 % Queenie Reeves pulse rate 68 /min Queenie gerard weight E&M 164 [lb_av] Queenie gerard respiratory rate E&M 16 /min Sanam Reeves blood pressure, cuff size large Nell Reeves height E&M 62 [in_i] Queenie gerard Body Mass Index (Ratio) 29.26 kg/m2 Richmond Salcedo MD blood pressure, diastolic 60 mm[Hg] Nell Reeves blood pressure, systolic 128 mm[Hg] Delroy helyoli Reeves oxygen saturation, oximetry 98 % Queenie Reeves pulse rate 60 /min Queenie gerard weight E&M 160 [lb_av] Queenie gerard height E&M 62 [in_i] Queenie gerard respiratory rate E&M 16 /min Sanam Reeves blood pressure, cuff size large Nell farias [place] Body Mass Index (Ratio) 30.54 kg/m2 Richmond Salcedo MD blood pressure, diastolic 93 mm[Hg] Ke [facility]ri [facility] blood pressure, systolic 193 mm[Hg] Sarita ri [facility] blood pressure, cuff size regular Ke rri [facility] oxygen saturation, oximetry 96 % Amanda Ramirosuepricilapal[facility] respiratory rate E&M 14 /min Amanda G [facility] pulse rate 65 /min [facility] weight E&M 167 [lb_av] Amanda [facility] height E&M 62 [in_i] Amanda [facility] Body Mass Index (Ratio) 32.37 kg/m2 Lucretia Vega MD blood pressure, cuff size regular Timo aric Bradford blood pressure, diastolic 86 mm[Hg] Ka aric [place] blood pressure, systolic 158 mm[Hg] Clarisse rice [place] oxygen saturation, oximetry 99 % Anna Bradford respiratory rate E&M 15 /min Anna Quinton pulse rate 72 /min Anna Bradford weight E&M 177 [lb_av] Anna Bradford height E&M 62 [in_i] Anna Quinton Body Mass Index (Ratio) 32.74 kg/m2 Richmond Salcedo MD blood pressure, diastolic 70 mm[Hg] Sa ra Juan blood pressure, systolic 145 mm[Hg] Isabelle a Juan oxygen saturation, oximetry 97 % Anne Juan respiratory rate E&M 19 /min Anne Si ms pulse rate 63 /min Anne Juan blood pressure, cuff size regular Sa ra Juan weight E&M 179 [lb_av] Anne Juan height E&M 62 [in_i] Anne Juan Body Mass Index (Ratio) 32.19 kg/m2 Salomón Marcial MD blood pressure, diastolic 75 mm[Hg] Ch astity [place] blood pressure, systolic 162 mm[Hg] Kiara stity [place] oxygen saturation, oximetry 97 % Chastity [place] pulse rate 75 /min Chastity [place] height E&M 62 [in_i] Chastity [place] weight E&M 176 [lb_av] Chastity [place] respiratory rate E&M 16 /min Chastit y [place] blood pressure, diastolic 99 mm[Hg] man Denisse ISBELL blood pressure, systolic 185 mm[Hg] m an Denisse ISBELL pulse rate 80 /min Cedrick Salcedo MD ALLERGIES Allergy Name Onset Date Reaction Criticality Status SULFA High Criticality active HISTORY OF MEDICATION USE Medication Status Instructions Dates Provider Indications Com ments valsartan 320 mg tablet active TAKE ONE TABLET BY MOUTH ONCE DAILY 04/20 Cedrick Salcedo MD diltiazem HCl 180 mg capsule,extended release 24hr active Take 1 capsule by mouth once a day 10/16 Amanda Bustos chlorthalidone 25 mg tablet completed Take 1/2 tablet by mouth once a day 10/01 - Cedrick Salcedo MD diltiazem HCl 180 mg capsule,extended release 24hr completed Take 1 capsule by mouth once a day Take 1 capsule by mouth once daily 08/19 - 10/16 Amanda Bustos Jardiance 10 mg tablet active Queenie Reeves diltiazem HCl 180 mg capsule,extended release 24hr completed Take 1 capsule by mouth once daily 04/19 - 08/19 Sergei Syed magnesium oxide 400 mg (241.3 mg magnesium) tablet active TAKE 1 TABLET TWICE A DAY 04/19 Queenie Reeves valsartan 160 mg tablet completed TAKE 1 TABLET DAILY (REPLACES THE LOSARTAN) 02/22 - 04/20 Emilia Canales carvedilol 25 mg tablet active TAKE 1 TABLET TWICE A DAY 02/22 Radha Mehta Xermelo 250 mg tablet active Radha Oconnor NP ondansetron HCl 8 mg tablet active TAKE 1 TABLET BY MOUTH EVERY 8 HOURS NEEDED FOR NAUSEA Radha Oconnor NP Tiadylt ER 300 mg capsule,extended release 24 hr completed - 06/12 Radha Oconnor NP Tiadylt ER 300 mg capsule,extended release 24 hr completed - 06/12 Radha Oconnor NP magnesium oxide 400 mg (241.3 mg magnesium) tablet completed Take 1 tablet by mouth twice a day TAKE 1 TABLET BY MOUTH TWICE A DAY 03/27 - 04/19 Queenie Reeves Intermittent palpitations valsartan 320 mg tablet completed take one tablet daily 02/22 - 02/22 Ayana Rushionesimo valsartan 320 mg tablet completed take one tablet daily - 02/22 Yony Jorgensen RN losartan 100 mg tablet completed Take 1 tablet by mouth once a day - 02/22 Cedrick Salcedo MD Coreg 25 mg tablet completed Take 1 tablet by mouth twice a day 02/21 - 02/22 Ayana Garza diltiazem HCl 300 mg capsule,extended release 24 hr completed 1 capsule by mouth once a day 02/21 - 04/19 Queenie Reeves metoprolol succinate 100 mg tablet extended release 24 hr completed - 02/21 Cedrick Salcedo MD metformin 500 mg tablet extended release 24 hr active Cedrick Salcedo MD hydrocodone-acetamin ophen 7.5-325 mg tablet completed - 04/20 Radha Mehta OneTouch Verio test strips strip active Cedrick Salcedo MD hydrochlorothiazide 12.5 mg tablet completed TAKE 1 TABLET BY MOUTH ONCE DAILY - 02/21 Cedrick Salcedo MD SOCIAL HISTORY Date Observation Value Provider smoking status Former smoker Cedrick Salcedo MD smoking status Former smoker Kenya Macedo social history reviewed E&M revi ewed - no changes required Cedrick Salcedo MD social history E&M S moking History: Shelly bolanos is a former smoker. Cedrick Salcedo MD smoking status Former smoker Cedrick Salcedo MD social history E&M S moking History: P atmilli is a former smoker. Cedrick Salcedo MD social history reviewed E&M revi ewed - no changes required Cedrick Salcedo MD smoking status Former smoker Queenie Charles marcio social history E&M S moking History: Shelly bolanos is a former smoker. Cedrick Salcedo MD social history reviewed E&M revi ewed - no changes required Cedrick Salcedo MD smoking status Former smoker Queenie buckley social history E&M S moking History: Shelly bolanos is a former smoker. Cedrick Salcedo MD social history reviewed E&M revi ewed - no changes required Cedrick Salcedo MD smoking status Former smoker Amanda Lupe nfelder smoking status Former smoker Radha Deepali perez DIRECTOR TECHNICAL social history reviewed E&M revi ewed - no changes required Cedrick Salcedo MD smoking status Former smoker Adrianna Dwyer ukoko social history E&M S moking History: Shelly atmilli is a former smoker. Cedrick Salcedo MD social history reviewed E&M revi ewed - no changes required Cedrick Salcedo MD smoking status Former smoker Cedrick Salcedo MD INSURANCE PROVIDERS Payer name Policy type / Coverage type Maya red libertarian ID [facility] [id number] ADVANCE DIRECTIVES Name Date POWER OF DISABILITY CASE MANAGER LIVING WILL ON FILE TREATMENT PLAN Date Name Performer [id number],S,c ontinue treatment. Had treatment in september that lowered serotonin and that helped bring her BP down as well. W ill stop diuretic and reduced valsartan then Cedrick Salcedo MD [id number],C,p er PCP H er updated medication list for this problem includes: Valsartan 160 Mg Tablet (Valsartan) ..... Take 1 tablet daily (replaces the losartan) Jardiance 10 Mg Tablet (Empagliflozin) Metformin 500 Mg Tablet Extended Release 24 Hr (Metformin) Cedrick Salcedo MD [id number],C, H er updated medication list for this problem includes: Diltiazem Hcl 180 Mg Capsule,extended Release 24hr (Diltiazem hcl) ..... Take 1 capsule by mouth once a day Valsartan 320 Mg Tablet (Valsartan) ..... Take 1 tablet daily (replaces the losartan) Carvedilol 25 Mg Tablet (Carvedilol) ..... Take 1 tablet twice a day BP today: 130/69 P rior BP: 169/93 (10/01/2022) Cedrick Salcedo MD [id number],C,o n metformin and jardiance. Cedrick Salcedo MD [id number],S, Cedrick Salcedo MD [id number],C,S tarting chlorthalidone 12.5mg daily BP today: 169/93 P rior BP: 128/60 (07/23/2022) Her updated medication list for this problem includes: Chlorthalidone 25 Mg Tablet (Chlorthalidone) ..... Take 1/2 tablet by mouth once a day Diltiazem Hcl 180 Mg Capsule,extended Release 24hr (Diltiazem hcl) ..... Take 1 capsule by mouth once a day take 1 capsule by mouth once daily Valsartan 320 Mg Tablet (Valsartan) ..... Take 1 tablet daily (replaces the losartan) Carvedilol 25 Mg Tablet (Carvedilol) ..... Take 1 tablet twice a day Cedrick Salcedo MD [id number],B, Cedrick Salcedo MD [id number],C,per oncology Cedrick Salcedo MD [id number],C,w ill reduce her dilt from 300 to 180 as pressure is running on low side. see her back in two months with intention of discontinuing it B P today: 128/60 P rior BP: 193/93 (12/18/2021) Cedrick Salcedo MD [id number],S,Per Dr. Cheo Salcedo MD [id number],S,S he has no evidence of renal artery stenosis and no LVH on her echo. I think that she has white coat HTN when she comes here. So, we'll continue the same medication. At home, if the pressure start going up, we can start adjusting medicine. B P today: 193/93 P rior BP: 158/86 (06/12/2021) Cedrick Salcedo MD [id number],C,Started on Xe remelo and Octreotide Radha Oconnor NP [id number],C,B P readings are high at home with occasional associated headache. 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 BP likely will start to decrease. Pt advised to call if experiencing lightheadness or diziness, or low BP readings BP today: 158/86 P rior BP: 145/70 (04/24/2021) Her updated medication list for this problem includes: Diltiazem Hcl 300 Mg Capsule,extended Release 24 Hr (Diltiazem hcl) ..... 1 capsule by mouth once a day Coreg 25 Mg Tablet (Carvedilol) ..... Take 1 tablet by mouth twice a day Valsartan 320 Mg Tablet (Valsartan) ..... Take one tablet daily Radha Oconnor DIRECTOR TECHNICAL [id number],C,R aised sugars may have been due to tumor. Cedrick Salcedo MD [id number],B,H er current medications are working very well for her. She states she feels much better. B P today: 145/70 P rior BP: 162/75 (03/27/2021) Her updated medication list for this problem includes: Coreg 25 Mg Tablet (Carvedilol) ..... Take 1 tablet by mouth twice a day Valsartan 320 Mg Tablet (Valsartan) ..... Take one tablet daily Diltiazem Hcl 180 Mg Capsule,extended Release 24 Hr (Diltiazem hcl) ..... Take 1 capsule by mouth every night Cedrick Salcedo MD [id number],N,R ecently diagnosed by Dr. Hoang Iqbal in [place]. They found metastatic cancer in the liver. Likely that HTN, high blood sugar were side effects of the tumor. She has [facility] scan and radiation to see where the cancer originated. Cedrick Salcedo MD [id number],C,P MD manages H er updated medication list for this problem includes: Valsartan 320 Mg Tablet (Valsartan) ..... Take one tablet daily Metformin 500 Mg Tablet Extended Release 24 Hr (Metformin) Margot Marcial MD [id number],Margot Palumbo MD [id number],W, O rders: 9 9214 MOD 30-39min (CPT-22923) M onitor - Telemetry (Mobile Cardiac) (CPT-75714) Her updated medication list for this problem includes: Coreg 25 Mg Tablet (Carvedilol) ..... Take 1 tablet by mouth twice a day Diltiazem Hcl 180 Mg Capsule,extended Release 24 Hr (Diltiazem hcl) ..... Take 1 capsule by mouth every night Margot Marcial MD [id number],B, H er updated medication list for this problem includes: Valsartan 320 Mg Tablet (Valsartan) ..... Take one tablet daily Coreg 25 Mg Tablet (Carvedilol) ..... Take 1 tablet by mouth twice a day Diltiazem Hcl 180 Mg Capsule,extended Release 24 Hr (Diltiazem hcl) ..... Take 1 capsule by mouth every night Margot Marcial MD [id number],W, O rders: 9 9214 MOD 30-39min (CPT-76132) M onitor - Telemetry (Mobile Cardiac) (CPT-52089) Margot Marcial MD [id number],C, T he patient states this is well controlled Cedrick Salcedo MD [id number],C, B P has become hard to control in the last couple years. Today BP elevated in office, 185/99. W e will change her lopressor to coreg, check an echo and a renal artery duplex to rule out SCOOTER and get labs to look for pheo. Cedrick Salcedo MD Cardiology Cedrick Salcedo MD Cardiology: B P today: 174/88 P rior BP: 143/78 (06/03/2023) Her updated medication list for this problem includes: Carvedilol 25 Mg Tablet (Carvedilol) ..... Take 1 tablet twice a day Valsartan 160 Mg Tablet (Valsartan) ..... Take 1 tablet daily (replaces the losartan) Diltiazem Hcl 180 Mg Capsule,extended Release 24hr (Diltiazem hcl) ..... Take 1 capsule by mouth once a day This visit has been a part of the consistent, comprehensive, and ongoing management of the chronic medical condition(s) listed above for the patient. Cedrick Salcedo MD Cardiology: c ontinue treatment. Had treatment in september that lowered serotonin and that helped bring her BP down as well. c ontinues octreotide treatments every 4 weeks Radha Oconnor DIRECTOR TECHNICAL Cardiology: r jamison Oconnor DIRECTOR TECHNICAL Cardiology:continue treatment. Had treatment in september that lowered serotonin and that helped bring her BP down as well. W ill stop diuretic and reduced valsartan then Cedrick Salcedo MD Cardiology:per PCP H er updated medication list for this problem includes: Valsartan 160 Mg Tablet (Valsartan) ..... Take 1 tablet daily (replaces the losartan) Jardiance 10 Mg Tablet (Empagliflozin) Metformin 500 Mg Tablet Extended Release 24 Hr (Metformin) Cedrick Salcedo MD Cardiology: H er updated medication list for this problem includes: Diltiazem Hcl 180 Mg Capsule,extended Release 24hr (Diltiazem hcl) ..... Take 1 capsule by mouth once a day Valsartan 320 Mg Tablet (Valsartan) ..... Take 1 tablet daily (replaces the losartan) Carvedilol 25 Mg Tablet (Carvedilol) ..... Take 1 tablet twice a day BP today: 130/69 P rior BP: 169/93 (10/01/2022) Cedrick Salcedo MD Cardiology:on metfor min and jardiance. Cedrick Salcedo MD Cardiology Cedrick Salcedo MD Cardiology:Starting chlorthalidone 12.5mg daily BP today: 169/93 P rior BP: 128/60 (07/23/2022) Her updated medication list for this problem includes: Chlorthalidone 25 Mg Tablet (Chlorthalidone) ..... Take 1/2 tablet by mouth once a day Diltiazem Hcl 180 Mg Capsule,extended Release 24hr (Diltiazem hcl) ..... Take 1 capsule by mouth once a day take 1 capsule by mouth once daily Valsartan 320 Mg Tablet (Valsartan) ..... Take 1 tablet daily (replaces the losartan) Carvedilol 25 Mg Tablet (Carvedilol) ..... Take 1 tablet twice a day Cedrick Salcedo MD Cardiology Cedrick Salcedo MD Cardiology:per oncology Cedrick parsons MD Cardiology:will redu ce her dilt from 300 to 180 as pressure is running on low side. see her back in two months with intention of discontinuing it B P today: 128/60 P rior BP: 193/93 (12/18/2021) Cedrick Salcedo MD Cardiology:Per Dr. Francisca Salcedo MD Cardiology:She has n o evidence of renal artery stenosis and no LVH on her echo. I think that she has white coat HTN when she comes here. So, we'll continue the same medication. At home, if the pressure start going up, we can start adjusting medicine. B P today: 193/93 P rior BP: 158/86 (06/12/2021) Cedrick Salcedo MD Cardiology:Started on Xeremelo a nd Octreotide Radha Oconnor NP Cardiology:BP readin gs are high at home with occasional associated headache. 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 BP likely will start to decrease. P t advised to call if experiencing lightheadness or diziness, or low BP readings BP today: 158/86 P rior BP: 145/70 (04/24/2021) Her updated medication list for this problem includes: Diltiazem Hcl 300 Mg Capsule,extended Release 24 Hr (Diltiazem hcl) ..... 1 capsule by mouth once a day Coreg 25 Mg Tablet (Carvedilol) ..... Take 1 tablet by mouth twice a day Valsartan 320 Mg Tablet (Valsartan) ..... Take one tablet daily Radha Oconnor NP Cardiology:Raised sugars may hav e been due to tumor. Cedrick Salcedo MD Cardiology:Her curre nt medications are working very well for her. She states she feels much better. B P today: 145/70 P rior BP: 162/75 (03/27/2021) Her updated medication list for this problem includes: Coreg 25 Mg Tablet (Carvedilol) ..... Take 1 tablet by mouth twice a day Valsartan 320 Mg Tablet (Valsartan) ..... Take one tablet daily Diltiazem Hcl 180 Mg Capsule,extended Release 24 Hr (Diltiazem hcl) ..... Take 1 capsule by mouth every night Cedrick Salcedo MD Cardiology:Recently diagnosed by Dr. Hoang Iqbal in [place]. They found metastatic cancer in the liver. Likely that HTN, high blood sugar were side effects of the tumor. She has [facility] scan and radiation to see where the cancer originated. Cedrick Salcedo MD EP:PMD manages H er updated medication list for this problem includes: Valsartan 320 Mg Tablet (Valsartan) ..... Take one tablet daily Metformin 500 Mg Tablet Extended Release 24 Hr (Metformin) Margot Marcial MD EP Margot durham MD EP: O rders: 9 9214 MOD 30-39min (CPT-86825) M onitor - Telemetry (Mobile Cardiac) (CPT-34536) Her updated medication list for this problem includes: Coreg 25 Mg Tablet (Carvedilol) ..... Take 1 tablet by mouth twice a day Diltiazem Hcl 180 Mg Capsule,extended Release 24 Hr (Diltiazem hcl) ..... Take 1 capsule by mouth every night Margot Marcial MD EP: H er updated medication list for this problem includes: Valsartan 320 Mg Tablet (Valsartan) ..... Take one tablet daily Coreg 25 Mg Tablet (Carvedilol) ..... Take 1 tablet by mouth twice a day Diltiazem Hcl 180 Mg Capsule,extended Release 24 Hr (Diltiazem hcl) ..... Take 1 capsule by mouth every night Margot Marcial MD EP: O rders: 9 9214 MOD 30-39min (CPT-34305) M onitor - Telemetry (Mobile Cardiac) (CPT-76911) Margot Marcial MD Cardiology: T he patient states this is well controlled Cedrick Salcedo MD Cardiology: B P has become hard to control in the last couple years. Today BP elevated in office, 185/99. W e will change her lopressor to coreg, check an echo and a renal artery duplex to rule out SCOOTER and get labs to look for pheo. Cedrick Salcedo MD Date Name Holter Monitor 24 Hr Monitor - Telemetry (Mobile Cardiac) PROBNP, N TERMINAL COMPREHENSIVE METABO LIC PANEL, W/EGFR EKG Renal Artery Duplex Complete Echo CATECHOLAMINES, FRAC TION, 24 HR UR W/O CREATININE METANEPHRINES, FRACT . LC/MS/MS, 24 HR URINE HISTORY OF PROCEDURES Procedure Date Procedure Name Provider Procedure Notes S tatus Complex e/m visit add on Cedrick Salcedo MD completed
--- OUTSIDE RECORDS SUMMARY | 2024-06-29 13:24 | XMS_ITS | Continuity of Care Document ---
Author Organization [facility] Address [address] [address] Insurance Providers Payer Plan Claims Address Claims Phone Policy Number Group Number Relation Employer Guarantor Name Guarantor Guarantor Address Guarantor Phone KARMA YO Knutson tel:[phone] [id number] [id number] [id number] [id number] Blue Cross Blue Shield Blue Cross Blue Shiel d [address], [place] [address] tel:[phone] [id number] 1 Problems Condition ICD9 code ICD10 code SNOMED code Start Date End Date S tatus Encounter for screening for other metabolic disorders Z13.228 Results Test Value / Unit Interpretation Reference Ran Comp. Metabolic Panel (14)[[id number]] Collected: 03/25/2024 07:17 PM Specimen Received: 03/25/2024 05:00 AM Source: [facility] Glucose [453169] 135 mg/dL H 70-99 mg/dL BUN [676254] 23 mg/dL 8-27 mg/dL Creatinine [572881] 0.64 mg/dL 0.57-1.0 0 mg/dL eGFR [693482] 99 mL/min/1.73 >59 mL/min/1 .73 BUN/Creatinine Ratio [894737] 36 H 12-28 Sodium [096391] 138 mmol/L 134-144 mmol /L Potassium [413709] 4.6 mmol/L 3.5-5.2 m mol/L Chloride [644288] 99 mmol/L 96-106 mmo l/L Carbon Dioxide, Total [195918] 24 mmol/L 20-29 mmol/L Calcium [871547] 9.5 mg/dL 8.7-10.3 mg /dL Protein, Total [448209] 6.6 g/dL 6.0- 8.5 g/dL Albumin [592775] 4.5 g/dL 3.9-4.9 g/d L Globulin, Total [698638] 2.1 g/dL 1.5 -4.5 g/dL Bilirubin, Total [683814] 0.7 mg/dL 0. 0-1.2 mg/dL Alkaline Phosphatase [406419] 86 IU/L 44-121 IU/L AST (SGOT) [426172] 23 IU/L 0-40 IU/ L ALT (SGPT) [433020] 30 IU/L 0-32 IU/ L Lipid Panel[[id number]] Collected: 03/25/2024 07:17 PM Specimen Received: 03/25/2024 05:00 AM Source: [facility] Cholesterol, Total [419129] 226 mg/dL H 100-199 mg/dL Triglycerides [423115] 151 mg/dL H 0-149 mg/dL HDL Cholesterol [210184] 84 mg/dL >39 mg/dL VLDL Cholesterol Mahamed [086349] 26 mg/dL 5-40 mg/dL LDL Chol Calc (NIH) [370381] 116 mg/dL H 0-99 mg/dL Albumin/Creatinine Ratio,Uri ne[578680] Collected: 03/25/2024 07:17 PM Specimen Received: 03/25/2024 05:00 AM Source: [facility] Creatinine, Urine [838111] 11.6 mg/dL N ot Estab. mg/dL Albumin, Urine [017230] 3.0 ug/mL Not Estab. ug/mL Verified by repeat analysi s Alb/Creat Ratio [093221] 26 mg/g creat 0- 29 mg/g creat Normal: 0 - 29 Moderately i ncreased: 30 - 300 Severely increased: >300 Hemoglobin A1c[720489] Collected: 03/25/2024 07:17 PM Specimen Received: 03/25/2024 05:00 AM Source: [facility] Hemoglobin A1c [592870] 8.6 % H 4.8- 5.6 % . Prediabetes: 5.7 - 6.4 Di abetes: >6.4 Glycemic control for adults with diabetes: 7.0 Allergies, adverse reactions, alerts No known allergies and adverse reactions Medications No administered medications reported Vital Signs No vital signs reported Social History No smoking Hx information available
--- OUTSIDE RECORDS SUMMARY | 2024-06-29 13:25 | XMS_ITS | Encounter Summary ---
Author Organization [facility] Address [address] [place] [address] Phone Care Team Providers Care Shaker Flatwork Name Role Phone UriKraineDominique LINING FINISHER Primary Care Provider [phone] Kenrick Espinosa MD Unavailable [phone] Noreen Bryan NP Primary Care Provider [phone] Gil Huggins MD Primary Care Provider [phone] Encounter Details Date Type Department Care Team (Latest Contact Info) Description 04/27/2021 Orders Only [facility] Scanning, Provider Social History Tobacco Use Types Packs/Day Years Used Date Smoking Tobacco: Never Assessed Comments Unknown Sex and Gender Information Value Date Recorded Sex Assigned at Not on file Legal Sex Female 2:57 AM COLLAR RUNNER Gender Identity Not on file Sexual Orientation Not on file documented as of this encounter Plan of Treatment Not on file documented as of this encounter Procedures Procedure Name Priority Date/Time Associated Diagnosis Comments SCAN - RADIOLOGY/IMAGING 04/27/2021 documented in this encounter Results * SCAN - RADIOLOGY/IMAGING (04/27/2021) Anatomical Region Laterality Modality Other us Provider Scanning Final Result documented in this encounter Visit Diagnoses Not on filedocumented in this encounter Additional Health Concerns Infection Onset Date Last Indicated Resolved Time COVID: Suspected 01/24/2022 01/24/2022 01/24/2022 2:03 AM COLLAR RUNNER Influenza, adult 01/24/2022 01/24/2022 01/31/2022 3:05 AM COLLAR RUNNER documented as of this encounter Care Teams Shaker Flatwork Relationship Specialty Start Date End Date Karine Grewal NP PCP - General Nurse Practitioner 08/09/21 03/14/24 Noreen Bryan NP [address] [place] [address] PCP - General Nurse Practitioner 03/15/24 05/02/24 Gil Huggins MD [address] [place] [address] PCP - General Family Practice 05/03/24 Kenrick Espinosa MD [address] [address] Medical Oncologist Hematology 08/09/21 03/14/24 documented as of this encounter
--- OUTSIDE RECORDS SUMMARY | 2024-06-29 13:25 | XMS_ITS | Clinical Summary ---
Author Organization [address] Address [address] [place] [address] Care Team Providers Care Prisoner Classification Interviewer Name Role Phone Gil Huggins MD Primary Care Provider [phone] Allergies Active Allergy Reactions Criticality Noted Date [...] per tablet Take by mouth Active omega 2-fvn-tlz-fish oil 1,200 (144-216) mg capsule Take by mouth Active vitamin B complex no.7-ltneh-S-bi otin 1-60-300 mg-mg-mcg tablet Take 300 mcg by mouth daily Active empagliflozin (JARDIANCE) 10 mg tablet Take 1 tablet (10 mg total) by mouth daily Active potassium gluconate 595 mg (99 mg) tablet Take 1 tablet (595 mg total) by mouth daily Active Active Problems Problem Noted Date Diagnosed Date 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 04/06/2021 Encounters Date Type Department Care Team Description 06/07/2024 10:15 AM CDT Infusion [facility] [address] [place] [address] Neuroendocrine cancer (HCC) (Primary Dx) 06/06/2024 Orders Only [facility] [address] [place] [address] David Alvarez MD 05/10/2024 9:30 AM CDT Infusion [place] [address] [place] [address] Neuroendocrine cancer (HCC) (Primary Dx) 05/08/2024 9:02 AM CDT - 05/08/2024 11:59 PM CDT Hospital Encounter [facility] [address] [place] [address] Screening mammogram, encounter for Discharge Disposition: Discharge to home or self care 04/28/2024 Orders Only [facility] [address] [place] [address] Jamal Case 04/12/2024 8:45 AM GUIDE FOREIGN TOUR Infusion [place] [id number] [place] [address] Neuroendocrine cancer (HCC) (Primary Dx) from Last 3 Months Immunizations Immunization Administration Dates Next Due Influenza, Unspecified 12/06/2020 Surgical History Surgery Date Site/Laterality Comments HEMORROIDECTOMY SPINAL FUSION ROTATOR CUFF REPAIR INCONTINENCE SURGERY 12/12/2022 Medical History Medical History Date Comments Asthma Cancer (HCC) Diabetes mellitus (HCC) Liver problem Hypertension Family History Medical History Relation Name Comments Leukemia Father Multiple myeloma Mother Relation Name Status Comments Father Mother Social History Tobacco Use Types Packs/Day Years Used Date Smoking Tobacco: Former Cigarettes Smokeless Tobacco: Never Tobacco Cessation:Counseling Given: Not Answered Comments No Sex and Gender Information Value Date Recorded Sex Assigned at Not on file Legal Sex Female 2:57 AM GUIDE FOREIGN TOUR Gender Identity Not on file Sexual Orientation Not on file Obstetrics History Para Term AB IAB SAB Ectopic Multiple Livin g Live Births 3 3 3 Date Outcome GA Total Labor Labor/2nd/3rd Weight Sex Type Anes PTL Yolis A1 A5 Name Clin Term Term Term Last Filed Vital Signs Vital Sign Reading [...] cm (5' 1.5 ) 02/16/2024 9:59 AM GUIDE FOREIGN TOUR Body Mass Index 27.81 02/16/2024 9:59 AM GUIDE FOREIGN TOUR Plan of Treatment Health Maintenance Due Date Last Done Comments Cervical Cancer Screening 1960 Depression Screening 1960 Hepatitis C Screening 1960 DTaP/Tdap/Td Vaccine (1 - Tdap) 1971 Hepatitis B Screening 1978 Regular Well Visit/Exam 18-64 1978 Pneumococcal vaccine <65 (3 of 3 - PCV) 09/03/2017 0 09/03/2016, 09/15/2014 Covid-19 Vaccine (2 - Jen risk series) 05/21/2020 04/23/2020 Colon Cancer Screening-Colonoscopy 09/18/20222012 Breast Cancer Screening-Mammogram 05/08/2025 025 Zoster Vaccine Completed 09/29/2020, 07/20/2020 Influenza Vaccine Completed 01/20/2024, 12/06/2020 Procedures Procedure Name Priority Date/Time Associated Diagnosis [...] Ordered by an unspecified provider. Procedure Note Provider, MD Bc - 09/18/2012 12:00 AM CDT PROCEDURE REPORT Patient: FENG MITCHELL Account: [id number] Room No: : 1960 Patient Type: [facility] Attend.: Danis Hernandez M.D. Admit Date: 09/18/2012 [...] MD On 09/21/2012 10:03:15 AM Historical Provider MD ENDOSCOPY PROCEDURES Dimple l Result from Last 3 Months or Most Recently Relevant to Health Maintenance Insurance [employer] ACCESS CHOICE Care Teams Prisoner Classification Interviewer Relationship Specialty Start Date End Date Gil Huggins MD [address] [place] [address] PCP - General Family Practice 05/03/24
--- OUTSIDE RECORDS SUMMARY | 2024-06-29 13:25 | XMS_ITS | Clinical Summary ---
Author Organization [facility] Address [address] [place] [address] Care Team Providers Care Forging Roll Operator Name Role Phone Gil Huggins MD Primary Care Provider [phone] Allergies Active Allergy Reactions Criticality Noted Date Comments Amlodipine Besylate Swelling Medium 08/27/2021 Simvastatin Muscle Pain Medium 08/27/2021 Sulfadiazine Hives High 03/27/2021 Telotristat Ethyl Diarrhea Low 08/27/2021 Medications metFORMIN (GLUCOPHAGE XR) 500 mg Extended Release 24 hour tablet 03/05/2021 Active magnesium oxide (MAG-OX) 400 mg (241.3 mg magnesium) tablet Take 400 mg by mouth 2 times daily. 03/27/2021 Active fexofenadine (SILVIA) 180 mg tablet Take 180 mg by mouth. Active carvediloL (COREG) 25 mg tablet Take 25 mg by mouth 2 times daily. 03/24/2021 Active calcium carbonate 600 mg-vitamin D3 5 mcg (200 unit) tablet Take by mouth. Active MELATONIN ORAL Take 10 mg by mouth. Active aspirin 81 mg chewable tablet Take 81 mg by mouth daily. Active POTASSIUM GLUCONATE ORAL Take by mouth. Active cholecalciferol (vitamin D3) 125 mcg (5,000 unit) capsule Take 5,000 Units by mouth daily. Active diltiaZEM (TIAZAC) 300 mg Extended Release capsule Take 180 mg by mouth daily. 02/21/2021 Active OneTouch Verio test strips Strip 07/19/2021 Active Huqsv-1-LIT-EPA -Fish Oil 1,200 (144-216) mg Capsule Take by mouth. Active empagliflozin (Jardiance) 10 mg tablet Take 10 mg by mouth daily in the morning. Active traMADoL (ULTRAM) 50 mg tabletIndicatio ns:Neuroendocri ne tumor of liver (CMS/HCC) Take 1 Tablet (50 mg) by mouth every 8 hours as needed for Pain. 60 Tablet 06/21/2022 Active ondansetron (ZOFRAN ODT) 8 mg Tablet, Rapid DissolveIndicat ions:Neuroendoc rine tumor of liver (CMS/HCC) Take 1 Tablet (8 mg) by mouth every 8 hours as needed for Nausea/Emesis . Dissolve 1 tablet on top of tongue then swallow with saliva every 8 hours as needed for nausea or vomiting 270 Tablet 3 07/19/2022 Active valsartan (DIOVAN) 80 mg tablet Take 80 mg by mouth daily. 40 mg Active astaxanthin 12 mg Capsule Take by mouth. 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 Encounters Date Type Department Care Team Description 06/28/2024 Orders Only [facility] [address] [place] [address] Kenrick Espinosa MD Neuroendocrine tumor of liver (CMS/HCC) 06/21/2024 Orders Only [facility] [place] [address] [place] [address] Kenrick Espinosa MD Neuroendocrine tumor of liver (CMS/HCC); Benign hypertension 06/14/2024 Orders Only [facility] [place] [address] [place] [address] Kenrick Espinosa MD Neuroendocrine tumor of liver (CMS/HCC) 06/07/2024 Orders Only [facility] [address] [place] [address] Kenrick Espinosa MD Neuroendocrine tumor of liver (CMS/HCC); Benign hypertension 05/31/2024 Orders Only [facility] [place] [place] [phone] Kenrick Espinosa MD Neuroendocrine tumor of liver (CMS/HCC) 05/24/2024 Orders Only [facility] [place] [address] [place] [address] Kenrick Espinosa MD Neuroendocrine tumor of liver (CMS/HCC); Benign hypertension 05/17/2024 Orders Only [facility] [place] [place] [address] Kenrick Espinosa MD Neuroendocrine tumor of liver (CMS/HCC) 05/10/2024 Orders Only [facility] [place] [place] [phone] Kenrick Espinosa MD Neuroendocrine tumor of liver (CMS/HCC); Benign hypertension 05/05/2024 External Device Data STL ABSTRACTION Provider, Abstract 05/03/2024 Orders Only [facility] [place] [place] [address] Kenrick Espinosa MD Neuroendocrine tumor of liver (CMS/HCC) 04/28/2024 External Device Data STL ABSTRACTION Provider, Abstract 04/27/2024 External Device Data STL ABSTRACTION Provider, Abstract 04/26/2024 Orders Only [facility] [address] [place] [address] Kenrick Espinosa MD Neuroendocrine tumor of liver (CMS/HCC); Benign hypertension 04/24/2024 External Device Data STL ABSTRACTION Provider, Abstract 04/23/2024 External Device Data STL ABSTRACTION Provider, Abstract 04/21/2024 External Device Data STL ABSTRACTION Provider, Abstract 04/19/2024 Orders Only [facility] [address] [place] [address] Kenrick Espinosa MD Neuroendocrine tumor of liver (CMS/HCC) 04/12/2024 Orders Only [facility] [address] [place] [address] Kenrick Espinosa MD Neuroendocrine tumor of liver (CMS/HCC); Benign hypertension 04/07/2024 External Device Data STL ABSTRACTION Provider, Abstract 04/05/2024 Orders Only [facility] [address] [place] [address] Kenrick Espinosa MD Neuroendocrine tumor of liver (CMS/HCC) from Last 3 Months Family History Medical History Relation Name Comments Diabetes Daughter 1 Diabetes Father Multiple myeloma Mother Relation Name Status Comments Brother 1 Alive Brother 2 Alive Brother 3 Alive Daughter 1 Alive Daughter 2 Alive Father Alive Mother Son Alive Social History Tobacco Use Types Packs/Day Years Used Date Smoking Tobacco: Never Smokeless Tobacco: Never Alcohol Use Standard Drinks/Week Comments Not Currently 0 (1 standard drink = 0.6 oz pur e alcohol) Comments No Sex and Gender Information Value Date Recorded Sex Assigned at Not on file Legal Sex Female 2:00 PM CARDIAC NURSE SPECIALIST Gender Identity Not on file Sexual Orientation Not on file Last Filed Vital Signs Vital Sign Reading Time Taken Comments Blood Pressure 189/78 12/09/2023 9:15 AM CDT forgot to take bp meds last night Pulse 60 12/09/2023 9:11 AM CDT Temperature 36.7 C (98 F) 12/09/2023 9:11 AM CDT Respiratory Rate 14 12/09/2023 9:11 AM CDT Oxygen Saturation 97% 12/09/2023 9:1 1 AM CDT Inhaled Oxygen Concentration - - Weight 75.1 kg (165 lb 9.6 oz) 12/09/2023 9:11 AM CDT Height 157.5 cm (5' 2 ) 06/19/2022 6:00 AM CDT Body Mass Index 30.29 06/19/2022 6:00 AM CDT Plan of Treatment Health Maintenance Due Date Last Done Comments DIABETES ANNUAL FOOT EXAM 1978 DIABETES MICROALBUMIN ANNUAL SCREEN 1978 LDL CHOLESTEROL ANNUAL 1978 DTAP/TDAP/TD VACCINES (1 - Tdap) 1979 HPV/Cotest (21-29) 1981 CERVICAL CANCER SCREENING 1990 HPV/Cotest (30-65) 1990 PAP SMEAR 1990 BREAST CANCER SCREENING 2000 FIT-DNA Q 3 years 2005 FIT/FOBT Q 1 year 2005 Flex Sig/CT Colonography Q 5 years 2005 ZOSTER VACCINE (1 of 2) 2010 RSV VACCINE (60+ or ) (1 - Risk 60-74 years 1-dose series) 2020 DIABETES HBA1C Q 6 MONTHS 09/04/2020 03/07/2020 COLORECTAL SCREENING 09/18/2022 09/18/2012 Colorectal Cancer Screening 09/18/2022 INFLUENZA VACCINE (#1) 2023 DIABETES ANNUAL RETINAL EXAM 03/04/2024 03/04/2023, 03/05/2022 Medical Devices Implanted Type Area Construction Stonemason Device Identifier Shelf Expiration Date Model / Serial / Lot Coil-05/31/2022 Implanted:Qty: 1 on 05/31/2022 by Erik Richardson MD Liver [employer] 03/03/2030 [id number] / / [id number] Description:POD 3 implanted on 05/31/[address] Richardson during [employer] Mapping Insurance [employer] ACCESS [place] [address] [address] BLUE ACCESS CHOICE Care Teams Forging Roll Operator Relationship Specialty Start Date End Date Gil Huggins MD [address] [place] [address] PCP - General Family Practice 10/15/22
--- OUTSIDE RECORDS SUMMARY | 2024-06-29 13:25 | XMS_ITS | Encounter Summary ---
Author Organization [facility] Address [address] [place] [address] Phone Care Team Providers Care Tool And Die Repairer Name Role Phone Karine Grewal NP Primary Care Provider [phone] Kenrick Espinosa MD Unavailable [phone] Noreen Bryan NP Primary Care Provider [phone] Gil Huggins MD Primary Care Provider [phone] Encounter Details Date Type Department Care Team (Latest Contact Info) Description 04/27/2022 Orders Only [facility] Scanning, Provider Social History Tobacco Use Types Packs/Day Years Used Date Smoking Tobacco: Every Day Cigarettes Smokeless Tobacco: Never Comments Unknown Sex and Gender Information Value Date Recorded Sex Assigned at Not on file Legal Sex Female 2:57 AM PLUSH CUTTER Gender Identity Not on file Sexual Orientation Not on file documented as of this encounter Plan of Treatment Not on file documented as of this encounter Procedures Procedure Name Priority Date/Time Associated Diagnosis Comments SCAN - RADIOLOGY/IMAGING 04/27/2022 documented in this encounter Results * SCAN - RADIOLOGY/IMAGING (04/27/2022) Anatomical Region Laterality Modality Other us Provider Scanning Final Result documented in this encounter Visit Diagnoses Not on filedocumented in this encounter Care Teams Tool And Die Repairer Relationship Specialty Start Date End Date Karine Grewal NP PCP - General Nurse Practitioner 08/09/21 03/14/24 Noreen Bryan NP [address] [place] [address] PCP - General Nurse Practitioner 03/15/24 05/02/24 Gil Huggins MD [address] [address] PCP - General Family Practice 05/03/24 Kenrick Espinosa MD [address] [place] [address] Medical Oncologist Hematology 08/09/21 03/14/24 documented as of this encounter
--- OUTSIDE RECORDS SUMMARY | 2024-06-29 13:25 | XMS_ITS | Clinical Summary ---
Author Organization [facility] Address [address] [place] [address] Phone Care Team Providers Care Electronics Teacher Name Role Phone Grewal Karine Skip LIMAN, ASSISTANT MANAGER RETAIL Primary Care Provider + Social History Tobacco Use Types Packs/Day Years Used Date Smoking Tobacco: Never Assessed Comments Unknown Sex and Gender Information Value Date Recorded Sex Assigned at Not on file Legal Sex Female 8:51 PM CDT Gender Identity Not on file Sexual Orientation Not on file Plan of Treatment Health Maintenance Due Date Last Done Comments Hepatitis C Virus (HCV) Screening 1960 TdaP Immunization 1960 Colonoscopy 2005 Colorectal Cancer Screening 2005 Cologuard 2010 Immunochemical Fecal Occult Blood 2010 Zoster Immunization (1 of 2) 2010 Pneumococcal Immunization (5 0+ years) (2 of 2 - PCV) 09/03/2017 09/03/2016 Influenza Immunization (#1) 2023 SARS-COV-2 Immunization (2023- season) 2023 01/19/2021, 04/23/2020 Respiratory Syncytial Virus (RSV) Immunization (Adult) (1 - 1-dose 75+ series) 2035 Pneumococcal Immunization Combined Discontinued 09/03/2016 Hepatitis B Immunization Aged Out No longer eligible based on patient's age to complete this topic Meningococcal Immunization (ACWY) Aged Out No longer eligible based on patient's age to complete this topic Rotavirus Immunization Aged Out No lo nger eligible based on patient's age to complete this topic Insurance [facility] Care Teams Electronics Teacher Relationship Specialty Start Date End Date Karine Grewal, CAROLYN, ASSISTANT MANAGER RETAIL PCP - General Advanced Practice Nurse 03/07/20
--- OUTSIDE RECORDS SUMMARY | 2024-06-29 13:25 | XMS_ITS | Encounter Summary ---
Author Organization [facility] Address [address] [place] [address] Phone Care Team Providers Care Harbor Pilot Name Role Phone Karine Grewal NP Primary Care Provider [phone] Kenrick Espinosa MD Unavailable [phone] [address] Bryan NP Primary Care Provider [phone] Gil Huggins MD Primary Care Provider [phone] Encounter Details Date Type Department Care Team (Latest Contact Info) Description 04/26/2022 Orders Only [facility] Scanning, Provider Social History Tobacco Use Types Packs/Day Years Used Date Smoking Tobacco: Every Day Cigarettes Smokeless Tobacco: Never Comments Unknown Sex and Gender Information Value Date Recorded Sex Assigned at Not on file Legal Sex Female 2:57 AM EXTENSION WORK DIRECTOR Gender Identity Not on file Sexual Orientation Not on file documented as of this encounter Plan of Treatment Not on file documented as of this encounter Procedures Procedure Name Priority Date/Time Associated Diagnosis Comments SCAN - RADIOLOGY/IMAGING 04/26/2022 documented in this encounter Results * SCAN - RADIOLOGY/IMAGING (04/26/2022) Anatomical Region Laterality Modality Other us Provider Scanning Edited Result - Final documented in this encounter Visit Diagnoses Not on filedocumented in this encounter Care Teams Harbor Pilot Relationship Specialty Start Date End Date Karine Grewal HOT WORKER PCP - General Nurse Practitioner 08/09/21 03/14/24 Noreen Bryan NP [address] [place] [address] PCP - General Nurse Practitioner 03/15/24 05/02/24 Gil Huggins MD [address] [place] [address] PCP - General Family Practice 05/03/24 Kenrick Espinosa MD [address] [address] Medical Oncologist Hematology 08/09/21 03/14/24 documented as of this encounter
[2024-06-29 20:27] LABS: Alanine Aminotransferase 39 U/L (6-35); Albumin Level 4.4 g/dL (3.5-5.1); Alkaline Phosphatase 74 U/L (38-126); Anion Gap 8 mmol/L (4-12); Aspartate Amino Transferase 63 U/L (14-36); Bilirubin,Total 0.5 mg/dL (0.2-1.3); Blood Urea Nitrogen 16 mg/dL (7-17); Calcium 9.2 mg/dL (8.4-10.2); Carbon Dioxide 27 mmol/L (22-30); Chloride 104 mmol/L (98-107); Cholesterol 252 mg/dL (0-200); Estimated Glomerular Filt Rate > 60; Glucose 132 mg/dL (65-110); HDL Direct 98 mg/dL; Potassium 4.1 mmol/L (3.4-5.0); Sodium 139 mmol/L (137-145); Triglycerides 84 mg/dL (<150)
[2024-06-29 20:38] LABS: LDL Cholesterol Direct 108 mg/dL
[2024-06-29 21:14] LABS: Hemoglobin A1C 6.6 % (<5.7)
[2024-06-29 23:25] LABS: Creatinine Urine 42.3 mg/dL
[2024-06-29 23:31] LABS: MALB Creatinine Ratio 72.6 mg/g (0-30); Microalbumin Urine Random 30.7 mg/L (0-16.7)
== END 2024-06-29 13:06 | disposition home or self-care (01) ==
LOC: ANHBWCLAB 13:07
PROVIDERS: PCP Nurse Practitioner Adult Health; Visit Provider Nurse Practitioner Adult Health
DX: E11.59 Type 2 diabetes mellitus with other circulatory complications (principal)
CPT/HCPCS: 36415; 80053; 80061; 82043; 82565; 83036